=== PATIENT | male | born 1960 | race Caucasian/White ===

== ENCOUNTER → 2017-10-18 | Outpatient (CLI) | payer OTHER ==
[~2017-10-18] MED LIST: CITA20; GLIM4; JARDIANCE25 MG PO; LOVA40; METF500C PO; ROPI.25
== END | disposition home or self-care (01) ==
LOC: LAB EV 11:30
DX: E11.9 Type 2 diabetes mellitus without complications (principal)
CPT/HCPCS: 82043

== ENCOUNTER 2018-07-29 08:08 | Day surgery (SDC) | payer OTHER ==
[~2018-07-29] VITALS: Ht 172.7 cm; Wt 110.0 kg
[~2018-07-29 08:08] MED LIST changes: -JARDIANCE25 MG PO
[2018-07-29] MEDS ORDERED: JARDIANCE25 MG PO (08:37)
== END 2018-07-29 09:54 | disposition home or self-care (01) ==
LOC: ORSCSDS 08:08
PROVIDERS: Ophthalmology
PROC: 08RK3JZ Replacement of Left Lens with Synthetic Substitute, Percutaneous Approach (ICD-10-PCS; principal; 2018-07-29 09:30)
DX: H25.12 Age-related nuclear cataract, left eye (principal); G47.33 Obstructive sleep apnea (adult) (pediatric); E11.36 Type 2 diabetes mellitus with diabetic cataract; E66.9 Obesity, unspecified; Z68.36 Body mass index [BMI] 36.0-36.9, adult; Z79.84 Long term (current) use of oral hypoglycemic drugs; Z79.899 Other long term (current) drug therapy
CPT/HCPCS: 82947; J2001; J2250; J3010; J3301; J7120; V2632

== ENCOUNTER → 2021-03-20 | Outpatient (CLI) | payer OTHER ==
[~2021-03-20] MED LIST changes: +AMOCLA875 PO; +AMOX-CLAV 500-1 EAC5 PO; +ATOR40TA PO; +ATORVASTATIN CA40 MG PO; +CITALOPRAM HBR20 M2 PO; -GLIM4; +GLIM4 PO; +GLIMEPIRIDE4 MG PO; +JARDIANCE25 MG PO; +METFORMIN HCL1000 M7 PO; +NEURONTIN300 MG PO; +ROPINIROLE HCL1 MG PO; +TRAZ100 PO; +TRULICITY1.5 MG/0.1 SC; +Vitamin D2000 UNIT PO
== END | disposition home or self-care (01) ==
LOC: LAB 18:16 → LAB SHORT 18:16
DX: E11.622 Type 2 diabetes mellitus with other skin ulcer (principal)
CPT/HCPCS: 87070; 87075; 87077; 87147; 87186; 87205

== ENCOUNTER 2021-04-18 15:07 | Inpatient (IN) | payer OTHER ==
[~2021-04-18] VITALS: Ht 172.7 cm; Wt 107.5 kg
[~2021-04-18 15:07] MED LIST changes: -AMOCLA875 PO; -AMOX-CLAV 500-1 EAC5 PO; -ATOR40TA PO; -ATORVASTATIN CA40 MG PO; -CITALOPRAM HBR20 M2 PO; -GLIMEPIRIDE4 MG PO; -METFORMIN HCL1000 M7 PO; -NEURONTIN300 MG PO; -ROPINIROLE HCL1 MG PO; -TRAZ100 PO; -TRULICITY1.5 MG/0.1 SC; -Vitamin D2000 UNIT PO
[2021-04-18 16:17] LABS: BASOPHILS ABSOLUTE AUTO 0.05 K/mm3 (0.00-0.23); BASOPHILS PERCENT AUTO 0 % (0-2); EOSINOPHILS ABSOLUTE AUTO 0.21 K/mm3 (0.00-0.68); EOSINOPHILS PERCENT AUTO 2 % (0-6); Hematocrit 42.3 % (37.0-53.0); Hemoglobin 14.4 g/dL (13.5-17.5); IMMATURE GRAN ABSOLUTE AUTO 0.14 K/mm3 (0.00-0.10); IMMATURE GRAN PERCENT AUTO 1 % (0-1); LYMPHOCYTES ABSOLUTE AUTO 1.34 K/mm3 (0.84-5.20); LYMPHOCYTES PERCENT AUTO 10 % (21-46); MONOCYTES ABSOLUTE AUTO 0.76 K/mm3 (0.16-1.47); MONOCYTES PERCENT AUTO 6 % (4-13); Mean Corpuscular HGB 30.4 pg (26.0-34.0); Mean Corpuscular Volume 89 fL (80-100); Mean Platelet Volume 8.4 fL (9.1-12.4); NEUTROPHILS PERCENT AUTO 81 % (41-73); Platelet Count 324 K/mm3 (150-400); RDW Coefficient Variation 12.2 % (11.7-14.2); RDW Standard Deviation 40.5 fL (35.1-46.3); Red Blood Cell Count 4.73 M/mm3 (4.30-5.90)
[2021-04-18 16:29] LABS: Alanine Aminotransfer (ALT/SGP 30 U/L (12-78); Albumin, Blood 2.4 g/dL (3.4-5.0); Albumin/Globulin Ratio 0.4 (0.8-1.8); Alk Phos 79 U/L (50-136); Anion Gap 6 mmol/L (6-16); Aspartate Aminotrans (AST/SGOT 26 U/L (12-37); Bilirubin, Total 0.2 mg/dL (0.1-1.0); Blood Urea Nitrogen 21 mg/dL (8-24); Bun/Creatinine Ratio 22.3 (12.0-20.0); CO2, Blood 25 mmol/L (21-32); Calcium, Blood 9.5 mg/dL (8.5-10.1); Chloride, Blood 103 mmol/L (98-108); Creatinine, Blood 0.94 mg/dL (0.60-1.20); Globulin, Blood 5.4 g/dL (2.2-4.0); Glomerular Filtration Rate >60 (60-); Glucose, Blood 171 mg/dL (70-99); Potassium, Blood 4.2 mmol/L (3.5-5.5); Sodium, Blood 134 mmol/L (136-145); Total Protein, Blood 7.8 g/dL (6.4-8.2)
[2021-04-18] MEDS ORDERED: ATORVASTATIN CA40 MG PO (16:57)
[2021-04-18] MEDS ORDERED: TRULICITY1.5 MG/0.1 SC ×2 (16:58)
[2021-04-18] MEDS ORDERED: AMOX-CLAV 500-1 EAC5 PO (16:58)
[2021-04-18] MEDS ORDERED: NEURONTIN300 MG PO ×3 (16:59→17:54)
[2021-04-18] MEDS ORDERED: TRAZ100 PO ×2 (17:00)
[2021-04-18] MEDS ORDERED: Vitamin D2000 UNIT PO ×2 (17:01)
[2021-04-18] MEDS ORDERED: GLIMEPIRIDE4 MG PO ×2 (17:51)
[2021-04-18] MEDS ORDERED: CITALOPRAM HBR20 M2 PO ×2 (17:52)
[2021-04-18] MEDS ORDERED: ROPINIROLE HCL1 MG PO ×2 (17:54)
[2021-04-18] MEDS ORDERED: METFORMIN HCL1000 M7 PO ×2 (17:54)
[2021-04-18] MEDS ORDERED: ATOR40TA PO ×2 (17:55)
--- NOTE | 2021-04-19 00:29 | NUR ---
PT NEW ADMIT, ARRIVED TO UNIT AT 2111. A/O X4, STANDBY ASSIST. INTRODUCED TO STAFF AND ROOM. PT DENIES, NAUSEA, SOB. ROOM AIR, MAINTAINING GOOD SATS. DIABETIC ULCERS ON L FOOT. CLEANSED AND DRESSED BY THIS RN. PHOTO CONSENT RECIEVED AND PHOTO DOCUMENTED. PT STATES HE HAS NEUROPATHY IN BLE AND HANDS. DENIES HX OF FALLS. PT STATES HE HAS SOME THROBBING IN L FOOT WHILE LIFTING FOOT UP. VSS, CALL LIGHT WITHIN REACH. WILL CONTINUE TO MONITOR.
[2021-04-19 05:29] LABS: BASOPHILS ABSOLUTE AUTO 0.04 K/mm3 (0.00-0.23); BASOPHILS PERCENT AUTO 0 % (0-2); EOSINOPHILS ABSOLUTE AUTO 0.32 K/mm3 (0.00-0.68); EOSINOPHILS PERCENT AUTO 3 % (0-6); Hematocrit 36.8 % (37.0-53.0); Hemoglobin 12.1 g/dL (13.5-17.5); IMMATURE GRAN PERCENT AUTO 2 % (0-1); LYMPHOCYTES ABSOLUTE AUTO 1.59 K/mm3 (0.84-5.20); LYMPHOCYTES PERCENT AUTO 17 % (21-46); MONOCYTES ABSOLUTE AUTO 0.67 K/mm3 (0.16-1.47); MONOCYTES PERCENT AUTO 7 % (4-13); Mean Corpuscular HGB 30.1 pg (26.0-34.0); Mean Corpuscular HGB Conc 32.9 g/dL (31.5-36.5); Mean Corpuscular Volume 92 fL (80-100); Mean Platelet Volume 8.2 fL (9.1-12.4); NEUTROPHILS ABSOLUTE AUTO 6.76 K/mm3 (1.96-9.15); NEUTROPHILS PERCENT AUTO 71 % (41-73); Platelet Count 299 K/mm3 (150-400); RDW Coefficient Variation 12.3 % (11.7-14.2); RDW Standard Deviation 41.4 fL (35.1-46.3); Red Blood Cell Count 4.02 M/mm3 (4.30-5.90); White Blood Cell Count 9.58 K/mm3 (4.00-11.30)
[2021-04-19 05:46] LABS: Anion Gap 5 mmol/L (6-16); Blood Urea Nitrogen 16 mg/dL (8-24); Bun/Creatinine Ratio 18.3 (12.0-20.0); CO2, Blood 28 mmol/L (21-32); Chloride, Blood 104 mmol/L (98-108); Creatinine, Blood 0.87 mg/dL (0.60-1.20); Glomerular Filtration Rate >60 (60-); Glucose, Blood 73 mg/dL (70-99); Potassium, Blood 3.9 mmol/L (3.5-5.5); Sodium, Blood 137 mmol/L (136-145)
--- NOTE | 2021-04-19 05:55 | NUR ---
MERCHANDISE PICKUP/RECEIVING ASSOCIATE SUMMARY PT A/O X4. AMBULATED WITH SBA. DENIES PAIN, NAUSEA, SOB. SLEPT ON AND OFF TONIGHT. ABLE TO MAKE NEEDS KNOWN. VSS, CALL LIGHT WITHIN REACH. SR IN THE 80'S PER SENIOR SHAREPOINT ARCHITECT. WILL CONTINUE TO MONITOR.
[2021-04-19 13:32] LABS: SARS-Cov-2 (COVID-19) PCR, MMC NEGATIVE (NEGATIVE)
--- NOTE | 2021-04-19 14:48 | NUR ---
THE PATIENT WAS BROUGHT DOWN TO DAY SURGERY FOR HIS PROCEDURE. Lungs clear T/O to Auscultation. History, Chart, Medications and Allergies reviewed before start of procedure.Patient confirms NPO status and agrees with scheduled surgery. Pre-Op teaching done. Pt verbalizes understanding. Patient States Post-Procedure ride home has been arranged.
--- NOTE | 2021-04-19 16:19 | NUR ---
04/19/21 1619 Fela Orta PT ON SCHEDULED ABX.
[2021-04-19 18:45] LABS: Vancomycin, Trough 22.8 ug/mL (5.0-10.0)
--- NOTE | 2021-04-19 19:42 | NUR ---
A+O, RECOVERING FROM DEBRIEDMENT OF L FOOT, DRESSING CDI, 2l VIA NC, DENIES PAIN AT THIS TIME, FOOT ELEVATED, ABX INFUSING, BSR SHARED WITH NOC NURSE AND PT
--- NOTE | 2021-04-20 04:41 | NUR ---
SHIFT SUMMARY ADMITTED FOR LEFT FOOT DIABETIC ULCER. FULL CODE. LEFT FOOT ULCER DEBRIDED YESTERDAY. PLAN IS FOR POSSIBLE WOUND VAC ATTACHMENT TODAY. LR INFUSING @ 50 ML/HR. WE DID TITRATE O2 DOWN, HE IS NOW ON RA. O2 SAT IS 94% ON RA. WE DID PROVIDE A BSC IN CASE PT COULD NOT URINATE PROPERLY - PROBLEM REPORTED FROM DAY RN. PT INFORMED ME THAT HE WAS FINALLY SUCCESSFUL IN USING THE URINAL. TELEMETRY - NSR @ 85 BPM. CONTACT PRECAUTIONS FOR MRSA IN WOUND.
[2021-04-20 05:49] LABS: Vancomycin, Random 11.9 ug/mL
[2021-04-20 10:53] LABS: Percent Saturation 33.5 % (20.0-50.0)
--- NOTE | 2021-04-20 17:56 | NUR ---
SPOKE TO DR MORENO THIS AFTERNOON REGARDING WOUND VAC PLACEMENT AND CARE MANAGEMENT NEEDING WOUND SIZE DOCUMENTATION FROM THE [employer] AND NEED FOR WOUND VAC IN A PROGRESS NOTE FOR INSURANCE APPROVAL FOR HOME WOUND VAC. PER DR MORENO HE WILL BE IN THIS EVEING TO TALK WITH THE PATIENT. WOUND VAC AWAITING PLACEMENT FOR MEASUREMENTS FROM DR. JUAN MASON IN ROOM AND THIS TIME.
--- NOTE | 2021-04-20 19:24 | NUR ---
SHIFT SUMMARY PT A&OX4, ABLE TO MAKE NEEDS KNOWN. PLEASANT AND COOPERATIVE TO CARE. MEDICATED FOR PAIN PER EMAR. NO C/O CP, SOB, OR N&V. PT ON IV ABX, NO ASE NOTED. PT SEEN BY DR. MORENO THIS SHIFT FOR REASSESSMENT OF WOUND TO L FOOT. PT's AT BEDSIDE THIS AFTERNOON. REPORT GIVEN TO CYTOTECHNOLOGIST SUPERVISOR NURSE. BED AT LOWEST POSITION. CALL LIGHT WITHIN REACH.
[2021-04-21 05:37] LABS: BASOPHILS ABSOLUTE AUTO 0.04 K/mm3 (0.00-0.23); BASOPHILS PERCENT AUTO 0 % (0-2); EOSINOPHILS ABSOLUTE AUTO 0.12 K/mm3 (0.00-0.68); EOSINOPHILS PERCENT AUTO 1 % (0-6); Hemoglobin 11.9 g/dL (13.5-17.5); IMMATURE GRAN ABSOLUTE AUTO 0.18 K/mm3 (0.00-0.10); IMMATURE GRAN PERCENT AUTO 2 % (0-1); LYMPHOCYTES ABSOLUTE AUTO 1.89 K/mm3 (0.84-5.20); LYMPHOCYTES PERCENT AUTO 20 % (21-46); MONOCYTES ABSOLUTE AUTO 0.52 K/mm3 (0.16-1.47); MONOCYTES PERCENT AUTO 5 % (4-13); Mean Corpuscular HGB 29.8 pg (26.0-34.0); Mean Corpuscular HGB Conc 33.1 g/dL (31.5-36.5); Mean Corpuscular Volume 90 fL (80-100); Mean Platelet Volume 7.9 fL (9.1-12.4); NEUTROPHILS ABSOLUTE AUTO 6.93 K/mm3 (1.96-9.15); NEUTROPHILS PERCENT AUTO 72 % (41-73); Platelet Count 322 K/mm3 (150-400); RDW Standard Deviation 39.8 fL (35.1-46.3); White Blood Cell Count 9.68 K/mm3 (4.00-11.30)
--- NOTE | 2021-04-21 05:47 | NUR ---
SHIFT SUMMARY: VSS. AFEB. AAOX4. ABLE TO COMMUNICATE NEEDS. MAINTENANCE IV FLUIDS CONTINUOUSLY PER ORDERS. IV ABT INFUSED. TO TOUCH WT BEARING ONLY TO LLE. WOUND VAC IN PLACE TO LLE AND SUCTIONING AT 125MMHG. NO DRAINAGE OBSERVED IN COLLECTION CHAMBER. PEDAL PULSES PALPABLE BILATERALLY. +1 PITTING EDEMA OF LLE, ELEVATED ON PILLOW. MED W/TYL FOR PAIN EFFECTIVELY. NO ACUTE OVERNIGHT EVENTS. WCTM.
[2021-04-21 06:03] LABS: Anion Gap 5 mmol/L (6-16); Blood Urea Nitrogen 20 mg/dL (8-24); Bun/Creatinine Ratio 25.3 (12.0-20.0); CO2, Blood 29 mmol/L (21-32); Calcium, Blood 8.4 mg/dL (8.5-10.1); Chloride, Blood 103 mmol/L (98-108); Creatinine, Blood 0.79 mg/dL (0.60-1.20); Glomerular Filtration Rate >60 (60-); Glucose, Blood 178 mg/dL (70-99); Potassium, Blood 4.1 mmol/L (3.5-5.5); Sodium, Blood 137 mmol/L (136-145)
--- NOTE | 2021-04-21 17:14 | NUR ---
SHIFT SUMMARY PATIENT ALERT AND ORIENTED THIS SHIFT. PATIENT IS A MINIMAL ASSIST DUE TO WOUND VAC ON L FOOT. PATIENT REMAINED IN BED THROUGHOUT THIS AM, THEN UP TO CHAIR THIS AFTERNOON. PATIENT MEDICATED FOR PAIN 1X THIS AFTERNOON, PER EMAR. PATIENT'S SPOUSE IN THE ROOM THIS AFTERNOON VISITING. PATIENT CURRENTLY SITTING UP IN CHAIR WATCHING TELEVISION.
--- NOTE | 2021-04-22 04:55 | NUR ---
SHIFT SUMMARY: VSS. AFEB. AAOX4. COMMUNICATES NEEDS. UP TO BSC W/ 1 ASSIST. HEEL TOUCH WT BEARING ONLY ON L FOOT. WOUND VAC IN PLACE AND CONTINUOUSLY SUCTIONING AT 120MMHG. PAIN MANAGED W/ TYLENOL. LLE ELEVATED ON PILLOW WHILE IN BED. +1 SWELLING AND MILD PERIWOUND ERYTHEMA VISIBLE. NO ACUTE OVERNIGHT EVENTS. WCTM.
--- NOTE | 2021-04-22 06:37 | NUR ---
REPORT GIVEN TO RUFUS ZHONG. PT T/F TO [facility] FLOOR ROOM 309. PT STATES HE WILL NOTIFY HIS OF THE ROOM CHANGE.
--- NOTE | 2021-04-22 18:42 | NUR ---
SHIFT SUMMARY EVA GOT TYLENOL FOR PAIN. SAT AT EDGE OF BED, MAINTAINED NWB ON LLE. VISITED. TOOK MEDS PRESCRIBED, CALL LIGHT IN REACH, WCTM
--- NOTE | 2021-04-23 04:31 | NUR ---
SHIFT SUMMARY NO ACUTE CHANGES THIS SHIFT, NO C/O ANY KIND, SLEPT T/O THE NIGHT & SLEEPING AT THIS TIME, CALL LIGHT IN REACH, WILL CONT TO MONITOR UNTIL REPORT GIVEN TO DAY RN.
--- NOTE | 2021-04-23 14:38 | NUR ---
UPDATED ON WOUND VAC STATIS. WOUND VAC COMING FROM [place]. PATIENT ALERT.ORIENTED. HAS DENIED ANY NEED FOR PAIN MEDS. WOUND VAC WITH SUCTION. UNLABORED RESPIRATIONS. NO ACUTE CHANGES . WCTM.
[2021-04-23] MEDS ORDERED: AMOCLA875 PO ×2 (16:07)
--- NOTE | 2021-04-23 18:45 | NUR ---
REVIEW D'C WITH PT AND S.O. WOUND VAC CHANGED AND HOME VAC USED. AWARE HAS 2 APPOINTMENTS. ONE MED AT [facility] AID AND REVIEW HOW AND WHEN TO TAKE. ANSWER ALL QUESTIONS. WOUND VAC WITH GOOD SUCTION. VERBALIZE UNDERSTANDING. IN W/C TO POV
== END 2021-04-23 18:45 | disposition home or self-care (01) | DRG 854 ==
LOC: ER 15:07 → MEDS 17:33
PROVIDERS: Internal Medicine; Physician Assistant; Podiatrist; ADMIT Family Medicine
PROC: 0LBW0ZZ Excision of Left Foot Tendon, Open Approach (ICD-10-PCS; principal; 2021-04-19 15:30)
DX: A40.8 Other streptococcal sepsis (principal); L97.528 Non-pressure chronic ulcer of other part of left foot with other specified severity; L03.116 Cellulitis of left lower limb; E87.1 Hypo-osmolality and hyponatremia; R65.20 Severe sepsis without septic shock; E11.621 Type 2 diabetes mellitus with foot ulcer; E11.628 Type 2 diabetes mellitus with other skin complications; L97.529 Non-pressure chronic ulcer of other part of left foot with unspecified severity; E11.42 Type 2 diabetes mellitus with diabetic polyneuropathy; F32.9 Major depressive disorder, single episode, unspecified; E78.5 Hyperlipidemia, unspecified; D50.9 Iron deficiency anemia, unspecified
CPT/HCPCS: 36415; 73630; 80048; 80053; 80202; 82728; 82947; 83540; 83550; 83605; 85025; 85651; 87040; 87070; 87075; 87076; 87077; 87185; 87186; 87205; 93005; 93010; 94760; 96365; 96375; 99285-25; A9270; J0690; J1100; J1815; J2250; J2405; J2543; J2704; J3010; J3370; J7050; J7120; U0004

== ENCOUNTER → 2021-05-07 | Outpatient (CLI) | payer OTHER ==
[~2021-05-07] MED LIST changes: +AMOCLA875 PO; +AMOX-CLAV 500-1 EAC5 PO; +ATOR40TA PO; +ATORVASTATIN CA40 MG PO; +CITALOPRAM HBR20 M2 PO; +GLIMEPIRIDE4 MG PO; +METFORMIN HCL1000 M7 PO; +NEURONTIN300 MG PO; +ROPINIROLE HCL1 MG PO; +TRAZ100 PO; +TRULICITY1.5 MG/0.1 SC; +Vitamin D2000 UNIT PO
[2021-05-07 17:08] LABS: BASOPHILS ABSOLUTE AUTO 0.04 K/mm3 (0.00-0.23); BASOPHILS PERCENT AUTO 1 % (0-2); EOSINOPHILS ABSOLUTE AUTO 0.64 K/mm3 (0.00-0.68); EOSINOPHILS PERCENT AUTO 9 % (0-6); Hematocrit 41.4 % (37.0-53.0); Hemoglobin 13.4 g/dL (13.5-17.5); IMMATURE GRAN ABSOLUTE AUTO 0.02 K/mm3 (0.00-0.10); IMMATURE GRAN PERCENT AUTO 0 % (0-1); LYMPHOCYTES ABSOLUTE AUTO 1.55 K/mm3 (0.84-5.20); LYMPHOCYTES PERCENT AUTO 22 % (21-46); MONOCYTES ABSOLUTE AUTO 0.44 K/mm3 (0.16-1.47); MONOCYTES PERCENT AUTO 6 % (4-13); Mean Corpuscular HGB 30.3 pg (26.0-34.0); Mean Corpuscular HGB Conc 32.4 g/dL (31.5-36.5); Mean Corpuscular Volume 94 fL (80-100); Mean Platelet Volume 8.5 fL (9.1-12.4); NEUTROPHILS PERCENT AUTO 62 % (41-73); Platelet Count 196 K/mm3 (150-400); RDW Coefficient Variation 13.2 % (11.7-14.2); RDW Standard Deviation 45.1 fL (35.1-46.3); Red Blood Cell Count 4.42 M/mm3 (4.30-5.90); White Blood Cell Count 7.09 K/mm3 (4.00-11.30)
== END | disposition home or self-care (01) ==
LOC: LAB 15:48 → LAB HH 15:48
PROVIDERS: Internal Medicine
DX: E13.621 Other specified diabetes mellitus with foot ulcer (principal); L97.509 Non-pressure chronic ulcer of other part of unspecified foot with unspecified severity
CPT/HCPCS: 85025; 85651; 86140

== ENCOUNTER → 2021-08-31 | Outpatient (CLI) | payer OTHER | END | disposition home or self-care (01) | LOC: LAB 16:00 → LAB HH 16:00 | DX: E11.621 Type 2 diabetes mellitus with foot ulcer (principal); L97.509 Non-pressure chronic ulcer of other part of unspecified foot with unspecified severity | CPT/HCPCS: 87070; 87075; 87077; 87147; 87186; 87205 ==

== ENCOUNTER → 2021-10-29 | Outpatient (CLI) | payer OTHER | END | disposition home or self-care (01) | LOC: LAB 11:50 → LAB SHORT 11:50 | DX: E11.40 Type 2 diabetes mellitus with diabetic neuropathy, unspecified (principal); L03.116 Cellulitis of left lower limb; E11.621 Type 2 diabetes mellitus with foot ulcer; L97.523 Non-pressure chronic ulcer of other part of left foot with necrosis of muscle; L97.423 Non-pressure chronic ulcer of left heel and midfoot with necrosis of muscle; Z86.14 Personal history of Methicillin resistant Staphylococcus aureus infection | CPT/HCPCS: 87070; 87075; 87147; 87205 ==

== ENCOUNTER 2021-12-28 11:27 | Day surgery (SDC) | payer OTHER ==
[~2021-12-28] VITALS: Ht 172.7 cm; Wt 108.6 kg
[2021-12-28] MEDS ORDERED: Amaryl2 MG PO (12:04)
--- NOTE | 2021-12-28 13:28 | NUR ---
12/28/21 1328 Dane Osorio 0.15ML OF EPI 1MG/ML ADDED TO 30ML BOTTLE OF BUPIVICAINE 0.5% TO CREATE A SOLUTION OF BUPIVICAINE 0.5% WITH EPI 1:200,000.
== END 2021-12-28 14:20 | disposition home or self-care (01) ==
LOC: ORSCSDS 11:27
PROVIDERS: Podiatrist Foot & Ankle Surgery
PROC: 0Y6P0Z0 Detachment at Right 1st Toe, Complete, Open Approach (ICD-10-PCS; principal; 2021-12-28 12:45)
DX: E11.621 Type 2 diabetes mellitus with foot ulcer (principal); M86.171 Other acute osteomyelitis, right ankle and foot; L03.031 Cellulitis of right toe; Z79.84 Long term (current) use of oral hypoglycemic drugs; Z79.899 Other long term (current) drug therapy
CPT/HCPCS: 82947; 87070; 87075; 87205; 88305; 88311; J0171; J0690; J2250; J2704; J3010; J7799

== ENCOUNTER 2022-09-16 20:27 | Inpatient (IN) | payer OTHER ==
[~2022-09-16] VITALS: Ht 172.7 cm; Wt 108.1 kg
[~2022-09-16 20:27] MED LIST changes: +Amaryl2 MG PO; +CELEXA40 M1 PO; -CITALOPRAM HBR20 M2 PO
[2022-09-16 21:06] LABS: BASOPHILS ABSOLUTE AUTO 0.04 K/mm3 (0.00-0.23); BASOPHILS PERCENT AUTO 0 % (0-2); EOSINOPHILS ABSOLUTE AUTO 0.03 K/mm3 (0.00-0.68); EOSINOPHILS PERCENT AUTO 0 % (0-6); Hematocrit 44.7 % (37.0-53.0); Hemoglobin 15.2 g/dL (13.5-17.5); IMMATURE GRAN ABSOLUTE AUTO 0.05 K/mm3 (0.00-0.10); IMMATURE GRAN PERCENT AUTO 0 % (0-1); LYMPHOCYTES ABSOLUTE AUTO 0.95 K/mm3 (0.84-5.20); LYMPHOCYTES PERCENT AUTO 8 % (21-46); MONOCYTES ABSOLUTE AUTO 0.58 K/mm3 (0.16-1.47); MONOCYTES PERCENT AUTO 5 % (4-13); Mean Corpuscular HGB 29.8 pg (26.0-34.0); Mean Corpuscular Volume 88 fL (80-100); NEUTROPHILS ABSOLUTE AUTO 10.86 K/mm3 (1.96-9.15); NEUTROPHILS PERCENT AUTO 87 % (41-73); Platelet Count 238 K/mm3 (150-400); RDW Coefficient Variation 11.9 % (11.7-14.2); RDW Standard Deviation 38.3 fL (35.1-46.3); White Blood Cell Count 12.51 K/mm3 (4.00-11.30)
[2022-09-16 21:33] LABS: Albumin, Blood 3.4 g/dL (3.4-5.0); Albumin/Globulin Ratio 0.7 (0.8-1.8); Bilirubin, Total 1.2 mg/dL (0.1-1.0); Bun/Creatinine Ratio 14.4 (12.0-20.0); Calcium, Blood 9.2 mg/dL (8.5-10.1); Creatinine, Blood 0.97 mg/dL (0.60-1.20); Globulin, Blood 4.6 g/dL (2.2-4.0); Potassium, Blood 4.6 mmol/L (3.5-5.5)
--- NOTE | 2022-09-17 06:44 | NUR ---
SHIFT SUMMARY: PATIENT ARRIVED TO PCU AT O154. ORIENTED TO ROOM. NO COMPLAINTS AT THIS TIME. STARTED ON NS @ 100/HR. RIGHT MIDDLE FINGER VERY SWOLLEN.
[2022-09-17 08:05] LABS: BASOPHILS ABSOLUTE AUTO 0.02 K/mm3 (0.00-0.23); BASOPHILS PERCENT AUTO 0 % (0-2); EOSINOPHILS ABSOLUTE AUTO 0.07 K/mm3 (0.00-0.68); EOSINOPHILS PERCENT AUTO 1 % (0-6); Hematocrit 40.3 % (37.0-53.0); Hemoglobin 14.1 g/dL (13.5-17.5); IMMATURE GRAN ABSOLUTE AUTO 0.07 K/mm3 (0.00-0.10); IMMATURE GRAN PERCENT AUTO 1 % (0-1); LYMPHOCYTES ABSOLUTE AUTO 1.33 K/mm3 (0.84-5.20); LYMPHOCYTES PERCENT AUTO 12 % (21-46); MONOCYTES ABSOLUTE AUTO 0.92 K/mm3 (0.16-1.47); MONOCYTES PERCENT AUTO 8 % (4-13); Mean Corpuscular HGB 30.6 pg (26.0-34.0); Mean Corpuscular Volume 87 fL (80-100); Mean Platelet Volume 7.8 fL (9.1-12.4); NEUTROPHILS ABSOLUTE AUTO 8.71 K/mm3 (1.96-9.15); NEUTROPHILS PERCENT AUTO 78 % (41-73); Platelet Count 198 K/mm3 (150-400); RDW Standard Deviation 38.9 fL (35.1-46.3); Red Blood Cell Count 4.61 M/mm3 (4.30-5.90); White Blood Cell Count 11.12 K/mm3 (4.00-11.30)
[2022-09-17 08:23] LABS: Bun/Creatinine Ratio 14.6 (12.0-20.0); Calcium, Blood 8.9 mg/dL (8.5-10.1); Creatinine, Blood 0.89 mg/dL (0.60-1.20); Potassium, Blood 4.1 mmol/L (3.5-5.5)
--- NOTE | 2022-09-17 18:04 | NUR ---
Shift Summary Pt was resting quietly in room and stated no c/o pain or discomfort. Pt was transported to surgical suite by bed at approximately 1200. Pt was returned to room at approximately 1500. Pt continued to rest in bed. Pt stated that their brething had improved greatly since recovery. Vital signs continued to measure within trends for pt.
--- NOTE | 2022-09-17 19:46 | NUR ---
Assumed care of patient at 1900. Pt resting in bed, at bedside. On RA, A&O. Pt requesting Kowalski catheter be removed. Pt denies other needs ATT. Vitals signs stable, will continue to monitor.
[2022-09-18 04:58] LABS: BASOPHILS ABSOLUTE AUTO 0.02 K/mm3 (0.00-0.23); BASOPHILS PERCENT AUTO 0 % (0-2); EOSINOPHILS PERCENT AUTO 0 % (0-6); Hematocrit 40.2 % (37.0-53.0); Hemoglobin 13.4 g/dL (13.5-17.5); IMMATURE GRAN ABSOLUTE AUTO 0.06 K/mm3 (0.00-0.10); IMMATURE GRAN PERCENT AUTO 1 % (0-1); LYMPHOCYTES ABSOLUTE AUTO 0.75 K/mm3 (0.84-5.20); LYMPHOCYTES PERCENT AUTO 7 % (21-46); MONOCYTES ABSOLUTE AUTO 0.46 K/mm3 (0.16-1.47); MONOCYTES PERCENT AUTO 4 % (4-13); Mean Corpuscular HGB Conc 33.3 g/dL (31.5-36.5); Mean Corpuscular Volume 90 fL (80-100); Mean Platelet Volume 8.4 fL (9.1-12.4); NEUTROPHILS ABSOLUTE AUTO 9.28 K/mm3 (1.96-9.15); NEUTROPHILS PERCENT AUTO 88 % (41-73); Platelet Count 202 K/mm3 (150-400); RDW Coefficient Variation 11.9 % (11.7-14.2); RDW Standard Deviation 38.9 fL (35.1-46.3); Red Blood Cell Count 4.47 M/mm3 (4.30-5.90); White Blood Cell Count 10.57 K/mm3 (4.00-11.30)
[2022-09-18 05:10] LABS: Bun/Creatinine Ratio 23.5 (12.0-20.0); Calcium, Blood 8.5 mg/dL (8.5-10.1); Creatinine, Blood 0.89 mg/dL (0.60-1.20); Potassium, Blood 4.8 mmol/L (3.5-5.5)
--- NOTE | 2022-09-18 06:07 | NUR ---
Shift summary. Pt rested in bed througout shift. Dr. Ulloa contacted for BG level of 470 at 2100, order obtained to switch patient to high sliding scale and achs coverage. BG down to 270 this am. No other acute changes. VS stable. See shift assessment for further details. Will continue to monitor and report off to dayshift RN.
[2022-09-18 16:08] LABS: Vancomycin, Trough 14.1 ug/mL (5.0-10.0)
--- NOTE | 2022-09-18 17:37 | NUR ---
Shift Summary Pt has been resting in room, they got up to the restroom to shower with the assistance of their spouse after this RN performed set up. Pt denied c/o pain and stated mild discomfort to the right hand. Pt has been in good spirits despite expressing worry over the potential of losing part of a digit. Pt's spouse has been at bedside throughout the day. Pt denied any c/o chills, they have remained afebrile with vital signs stable.
--- NOTE | 2022-09-19 04:46 | NUR ---
SHIFT SUMMARY A&Ox4, CALLS AND COMMUNICATES NEEDS APPROPRIATELY VSS, SINUS 80's, SpO2> 92% RA. DENIES SOB, CP/PRESSURE. DRESING ON RIGHT MIDDLE FINGER C/D/I. MANAGED PAIN PER EMAR. PT IND IN ROOM. NO OTHER EVENTS THIS SHIFT, WILL REPORT TO DAY SHIFT RN.
--- NOTE | 2022-09-19 11:47 | NUR ---
Spiritual care visit attempted. Pt is lying in bed and alert. Spouse Kayla is bedside. I introduce myself and pt and Kayla quickly decline a visit. I will continue to remian available to pt and family.
--- NOTE | 2022-09-19 17:52 | NUR ---
SHIFT SUMMARY Pt has been up in room under the supervision of family members. Pt has stated that pain has been manageable (2-02/24) without medication. Pt has been offered pain management when pain is reported, pt has refused each time. Pt has expressed some sorrow regarding the upcoming amputation of their digit. Pt has been open to communication with this RN and has expressed a desire for the shortest possible path to discharge. Vital signs stable.
--- NOTE | 2022-09-20 00:22 | NUR ---
DRESSING CHANGE WHILE PROVIDING THE ORDERED DRESSING CHANGE, THIS RN WAS UNABLE TO REMOVE 100% OF THE PACKING. PACKING REMAINED IN ONE PIECE BUT WAS REQUIRING MORE PULLING FORCE THAN THIS RN WAS COMFORTABLE WITH PROVIDING TO REMOVE COMPLETELY. ANOTHER RN AND THE CHARGE NURSE HELPED ASSESS THE PT AND ASSISTED WITH THE DRESSING CHANGE, THEY WERE ALSO NOT ABLE TO REMOVE THE PACKING. TRIMMED PACKING TO LEAVE 1.5in TAIL AND PROCEEDED WITH DRESSING CHANGE ORDERED. PT DENIED PAIN DURING DRESSING CHANGE AND HAS NO COMPLAINTS OF PAIN AT THIS TIME.
[2022-09-20 03:51] LABS: BASOPHILS ABSOLUTE AUTO 0.04 K/mm3 (0.00-0.23); BASOPHILS PERCENT AUTO 0 % (0-2); EOSINOPHILS ABSOLUTE AUTO 0.26 K/mm3 (0.00-0.68); EOSINOPHILS PERCENT AUTO 3 % (0-6); Hematocrit 40.1 % (37.0-53.0); Hemoglobin 13.2 g/dL (13.5-17.5); IMMATURE GRAN ABSOLUTE AUTO 0.06 K/mm3 (0.00-0.10); IMMATURE GRAN PERCENT AUTO 1 % (0-1); LYMPHOCYTES ABSOLUTE AUTO 1.71 K/mm3 (0.84-5.20); LYMPHOCYTES PERCENT AUTO 18 % (21-46); MONOCYTES ABSOLUTE AUTO 0.62 K/mm3 (0.16-1.47); MONOCYTES PERCENT AUTO 7 % (4-13); Mean Corpuscular HGB 29.6 pg (26.0-34.0); Mean Corpuscular HGB Conc 32.9 g/dL (31.5-36.5); Mean Corpuscular Volume 90 fL (80-100); Mean Platelet Volume 8.1 fL (9.1-12.4); NEUTROPHILS ABSOLUTE AUTO 6.87 K/mm3 (1.96-9.15); NEUTROPHILS PERCENT AUTO 72 % (41-73); Platelet Count 222 K/mm3 (150-400); RDW Coefficient Variation 11.8 % (11.7-14.2); RDW Standard Deviation 38.5 fL (35.1-46.3); Red Blood Cell Count 4.46 M/mm3 (4.30-5.90); White Blood Cell Count 9.56 K/mm3 (4.00-11.30)
[2022-09-20 04:08] LABS: Vancomycin, Trough 20.4 ug/mL (5.0-10.0)
[2022-09-20 04:19] LABS: Calcium, Blood 8.9 mg/dL (8.5-10.1); Creatinine, Blood 0.85 mg/dL (0.60-1.20); Potassium, Blood 3.9 mmol/L (3.5-5.5)
--- NOTE | 2022-09-20 04:52 | NUR ---
SHIFT SUMMARY A&Ox4, CALLS AND COMMUNICATES NEEDS APPROPRIATELY. VSS, SINUS 80's, BP STABLE, SpO2> 92% RA. DENIES SOB, CP/PRESSURE. PROVIDED DRESSING CHANGE ON R MIDDLE FINGER, SEE DRESSING CHANGE NOTE. PT IND IN ROOM. PT NPO AT 0000. NO OTHER EVENTS THIS SHIFT, PT ANXIOUS FOR PROCEDURE. WILL REPORT TO DAY SHIFT RN.
--- NOTE | 2022-09-20 09:24 | NUR ---
PATIENT AND STATES SCARED REGARDING ASPIRATION LAST TIME A FEW DAYS AGO OFFERED REASSURANCE. GIVEN TISSUE AT THIS TIME..
--- NOTE | 2022-09-20 09:31 | NUR ---
PT LEFT PCU FOR PROCEDURE AT ABOUT 0915 VIA GURNEY AND OCCOMPANIED BY ONE RN.
--- NOTE | 2022-09-20 11:05 | NUR ---
09/20/22 1105 Kylie Pa NO PREOP ANTIBIOTICS ORDERED PER PATIENT IS ON SCHEDULED ANTIBIOTICS.
--- NOTE | 2022-09-20 11:20 | NUR ---
discharge update DISCHARGE PACKET GONE OVER WITH PT AND PT AT 1107. PT DISCHARGED AT 1118. PT REFUSED WHEELCHAIR AND WALKED OUT [facility] ON HIS OWN. PT STENT CARD IN DISCHARGE PACKET AND PACKET IS WITH DURING DISCHARGE. PT PERSONAL BELONGINGS IN BAGS AND WITH PT DURING DISCHARGE.
--- NOTE | 2022-09-20 11:37 | NUR ---
REPORT RECIEVED FROM IMMUNOPATHOLOGIST AT 1132.
--- NOTE | 2022-09-20 12:08 | NUR ---
PT ARRIVED FROM PROCEDURE AT 1200 VIA GURNEY. PT ON 2L NC UPON ARRIVAL, SATS IN THE 90'S
--- NOTE | 2022-09-20 13:39 | NUR ---
PT UP IN ROOM. AMBULATED TO BATHROOM AND BACK TO BED WITH MINIMAL ASSISTANCE, SBA. TOLERATED WELL. NO RPORT OF SOB/DYSPNEA.
--- NOTE | 2022-09-20 18:51 | NUR ---
SHIFT SUMMARY PT A/OX4 AND COOPERATIVE OF CARE. PT AND PT SPOUSE BOTH A LITTLE ANXIOUS ABOUT PROCEDURE AND ABX TREATMENT THAT IS NEEDED. PT VSS THROUGHOUT SHIFT WITH O2 SATS >96% ON RA. NO REPORT OF CHEST PAIN/PRESSURE THROUGHOUT SHIFT. NO REPORT OF SOB/DYSPNEA THROUGHOUT SHIFT. PT HAD RIGHT MIDDLE FINGER AMPUTATED, DRESSING IN PLACE, C/D/I. NO PAIN REPORTED AFTER PROCEDURE, STATES "THERE IS SIGNIFICANT NEUROPATHY THOUGH." PT RAN A MINOR TEMP TOWARDS END OF SHIFT, TREATED PER EMAR, RESOLVED AT THIS TIME.PT UP TO BATHROOM MULTIPLE TIMES, SBA, TOLERATED WELL. NS RUNNIG AT 8OML/HR PER ORDERS, PT INSTRUCTED TO CALL FOR BATHROOM ASSISTANCE.
[2022-09-21 00:22] LABS: Vancomycin, Trough 11.3 ug/mL (5.0-10.0)
[2022-09-21 04:24] LABS: BASOPHILS ABSOLUTE AUTO 0.02 K/mm3 (0.00-0.23); BASOPHILS PERCENT AUTO 0 % (0-2); EOSINOPHILS ABSOLUTE AUTO 0.32 K/mm3 (0.00-0.68); EOSINOPHILS PERCENT AUTO 3 % (0-6); Hematocrit 36.5 % (37.0-53.0); Hemoglobin 12.4 g/dL (13.5-17.5); IMMATURE GRAN ABSOLUTE AUTO 0.07 K/mm3 (0.00-0.10); IMMATURE GRAN PERCENT AUTO 1 % (0-1); LYMPHOCYTES ABSOLUTE AUTO 1.33 K/mm3 (0.84-5.20); LYMPHOCYTES PERCENT AUTO 13 % (21-46); MONOCYTES ABSOLUTE AUTO 0.59 K/mm3 (0.16-1.47); MONOCYTES PERCENT AUTO 6 % (4-13); Mean Corpuscular HGB 30.4 pg (26.0-34.0); Mean Corpuscular Volume 90 fL (80-100); Mean Platelet Volume 7.9 fL (9.1-12.4); NEUTROPHILS ABSOLUTE AUTO 7.62 K/mm3 (1.96-9.15); NEUTROPHILS PERCENT AUTO 77 % (41-73); Platelet Count 207 K/mm3 (150-400); RDW Coefficient Variation 11.9 % (11.7-14.2); RDW Standard Deviation 39.1 fL (35.1-46.3); Red Blood Cell Count 4.08 M/mm3 (4.30-5.90); White Blood Cell Count 9.95 K/mm3 (4.00-11.30)
--- NOTE | 2022-09-21 05:30 | NUR ---
SHIFT SUMMARY ASSUMEDCARE OF PT AT 1900. PT IS A/OX4. HEART SOUNDS REGULAR. LUNG SOUNDS CLEAR. PT R HAND IS WARM TO TOUCH, CAP REFILL TO HAND IS LESS THAN 3 SECONDS. PT STATES PAIN COMES AND GOES FROM HAND. PT IS INDEPENDENT TO BATHROOM. NO ACUTE EVENTS. SLEPT T/O THE NIGHT.
--- NOTE | 2022-09-21 17:36 | NUR ---
SHIFT SUMMARY/TRANSFER UPDATE PT A/OX4 AND COOPERATIVE OF CARE. PT EXPRESSED SOME ANXIETY OVER THE TIME FRAME OF ABX TREATMENT NEEDED WHEN PT IS TO BE DISCHARGED, LESS ANXIOUS ABOUT SITUATION TODAY. VSS THROUGHOUT SHIFT WITH O2 SATS >93% ON RA. NO REPORT OF CHEST PAIN/PRESSURE THOUGHOUT SHIFT. NO REPORT OF SOB/DYSPNEA THROUGHOUT SHIFT. PT INDEPENDENT WITHIN ROOM WITH MINIMAL ASSISTANCE FROM AND STAFF, TOLERATES WELL. REPORT FOR TRANSFER TO SUGICAL FLOOR GIVEN TO ETCHER PHOTOENGRAVING AT 1717. PT TRANSFERED TO SURGICAL ROOM AT 1734 VIA HOSPITAL BED. PT BELONGINGS, CHART, AND MEDS TRANSFERED WITH PT. PT PRESENT DURING TRANSFER.
--- NOTE | 2022-09-21 17:48 | NUR ---
ARRIVAL PT ARRIVED TO UNIT FROM PCU. POD 1 R MIDDLE FINGER AMPUTATION. PT DENIES PAIN AT THIS TIME AND REPORTS NEUROPATHY TO HANDS AND FEET AT BASELINE FOR HIM. AT BEDSIDE HELPING WITH PATIENTS NEEDS AT THIS TIME. ALL BELONGINGS SENT WITH PATIENT. ORIENTED TO UNIT. DENIES FURTHER NEEDS AT THIS TIME. CALL LIGHT IN REACH
--- NOTE | 2022-09-22 04:14 | NUR ---
SHIFT SUMMARY POD#2. AAOX4. DISCOMFORT AT TOLERABLE LEVEL T/O NIGHT. DENIES NAUSEA/EMESIS. DRESSING TO RIGHT MIDDLE FINGER SCANT AMOUNT OF DRY RED DRAINAGE, NO INCREASE THIS SHIFT. INDEPENDENT IN ROOM. GOOD PO INTAKE + OUTPUT. IVF + ABX PER ORDERS. PT RESTING WELL THIS AM, NO ACUTE CHANGES OVER NIGHT, CALL LIGHT IN REACH.
[2022-09-22 09:45] LABS: BASOPHILS ABSOLUTE AUTO 0.02 K/mm3 (0.00-0.23); BASOPHILS PERCENT AUTO 0 % (0-2); EOSINOPHILS ABSOLUTE AUTO 0.29 K/mm3 (0.00-0.68); EOSINOPHILS PERCENT AUTO 3 % (0-6); Hematocrit 40.2 % (37.0-53.0); Hemoglobin 13.3 g/dL (13.5-17.5); IMMATURE GRAN ABSOLUTE AUTO 0.06 K/mm3 (0.00-0.10); IMMATURE GRAN PERCENT AUTO 1 % (0-1); LYMPHOCYTES ABSOLUTE AUTO 1.04 K/mm3 (0.84-5.20); LYMPHOCYTES PERCENT AUTO 11 % (21-46); MONOCYTES ABSOLUTE AUTO 0.59 K/mm3 (0.16-1.47); MONOCYTES PERCENT AUTO 6 % (4-13); Mean Corpuscular HGB Conc 33.1 g/dL (31.5-36.5); Mean Corpuscular Volume 91 fL (80-100); Mean Platelet Volume 7.9 fL (9.1-12.4); NEUTROPHILS ABSOLUTE AUTO 7.58 K/mm3 (1.96-9.15); NEUTROPHILS PERCENT AUTO 79 % (41-73); Platelet Count 216 K/mm3 (150-400); RDW Coefficient Variation 11.9 % (11.7-14.2); RDW Standard Deviation 39.8 fL (35.1-46.3); Red Blood Cell Count 4.44 M/mm3 (4.30-5.90); White Blood Cell Count 9.58 K/mm3 (4.00-11.30)
[2022-09-22 10:07] LABS: Bun/Creatinine Ratio 11.9 (12.0-20.0); Calcium, Blood 8.5 mg/dL (8.5-10.1); Creatinine, Blood 0.84 mg/dL (0.60-1.20); Potassium, Blood 4.1 mmol/L (3.5-5.5)
--- NOTE | 2022-09-22 16:10 | NUR ---
SHIFT SUMMARY POD 2 R MIDDLE FINGER AMPUTATION PT HAS DENIED PAIN T/O SHIFT. HE HAS BEEN AMBULATING IN HIS ROOM, TOOK A SHOWER TODAY AND REPORTS FEELING MUCH BETTER. DRESSING REMAINS CDI. TOLERATING PO WELL. EAGER TO POSSIBLY DISCHARGE HOME TOMORROW WITH ABX.
[2022-09-23 04:52] LABS: BASOPHILS ABSOLUTE AUTO 0.03 K/mm3 (0.00-0.23); BASOPHILS PERCENT AUTO 0 % (0-2); EOSINOPHILS ABSOLUTE AUTO 0.38 K/mm3 (0.00-0.68); EOSINOPHILS PERCENT AUTO 4 % (0-6); Hematocrit 38.2 % (37.0-53.0); Hemoglobin 12.5 g/dL (13.5-17.5); IMMATURE GRAN ABSOLUTE AUTO 0.07 K/mm3 (0.00-0.10); IMMATURE GRAN PERCENT AUTO 1 % (0-1); LYMPHOCYTES ABSOLUTE AUTO 1.37 K/mm3 (0.84-5.20); LYMPHOCYTES PERCENT AUTO 16 % (21-46); MONOCYTES ABSOLUTE AUTO 0.64 K/mm3 (0.16-1.47); MONOCYTES PERCENT AUTO 7 % (4-13); Mean Corpuscular HGB 29.5 pg (26.0-34.0); Mean Corpuscular HGB Conc 32.7 g/dL (31.5-36.5); Mean Corpuscular Volume 90 fL (80-100); Mean Platelet Volume 8.3 fL (9.1-12.4); NEUTROPHILS ABSOLUTE AUTO 6.13 K/mm3 (1.96-9.15); NEUTROPHILS PERCENT AUTO 71 % (41-73); Platelet Count 253 K/mm3 (150-400); Red Blood Cell Count 4.24 M/mm3 (4.30-5.90); White Blood Cell Count 8.62 K/mm3 (4.00-11.30)
[2022-09-23 05:33] LABS: Albumin, Blood 2.3 g/dL (3.4-5.0); Albumin/Globulin Ratio 0.5 (0.8-1.8); Bilirubin, Total 0.7 mg/dL (0.1-1.0); Creatinine, Blood 0.85 mg/dL (0.60-1.20); Globulin, Blood 4.4 g/dL (2.2-4.0); Total Protein, Blood 6.7 g/dL (6.4-8.2)
--- NOTE | 2022-09-23 06:34 | NUR ---
POD 3 S/P R MIDDLE FINGER AMP. PT VSS T/O NIGHT. DRESSING CDI. PT REP PAIN MINIMAL, MED W/TYLENOL W/REP RELIEF. PT DENIED CHANGES IN SENSATION. PT INDEP IN ROOM. PLAN TO D/C HOME W/6 WEEKS IV ABX.
[2022-09-23] MEDS ORDERED: CUBICIN RF500 M1 IV (11:31)
[2022-09-23] MEDS ORDERED: ACET325 PO (11:31)
[2022-09-23] MEDS ORDERED: THERA-D2000 UNIT PO (11:31)
[2022-09-23] MEDS ORDERED: LACT PO (11:32)
--- NOTE | 2022-09-23 12:20 | NUR ---
DISCHARGE DR VICKERS BY TO CHANGE DRSG EARLIER. EATING, DRINKING, & VOIDING. IND TO TRANSFER. OORDERS, LABS, & DR NOTES FAXED TO [facility]. ATTEMPTED TO SCHEDULE APPNT FOR TOMORROW BUT DIRECTOR OF OUTREACH STATES THEY WILL CALL PT LATER TO SET UP APPNT. GIVEN # TO [facility].
== END 2022-09-23 12:33 | disposition home or self-care (01) | DRG 853 ==
LOC: ER 20:27 → PCU 09-17 01:15 → SURS 09-17 13:48 → PCU 09-17 14:46 → SURS 09-21 17:39
PROVIDERS: Family Medicine; Orthopaedic Surgery; Student in an Organized Health Care Education/Training Program; ADMIT Family Medicine
PROC: 3E03329 Introduction of Other Anti-infective into Peripheral Vein, Percutaneous Approach (ICD-10-PCS; 2022-09-17)
PROC: 0X6Q0Z1 Detachment at Right Middle Finger, High, Open Approach (ICD-10-PCS; 2022-09-20)
PROC: 02HV33Z Insertion of Infusion Device into Superior Vena Cava, Percutaneous Approach (ICD-10-PCS; 2022-09-20)
PROC: 0P9T0ZZ Drainage of Right Finger Phalanx, Open Approach (ICD-10-PCS; 2022-09-20)
PROC: 0PBT0ZX Excision of Right Finger Phalanx, Open Approach, Diagnostic (ICD-10-PCS; principal; 2022-09-20 10:00)
DX: A41.02 Sepsis due to Methicillin resistant Staphylococcus aureus (principal); I33.0 Acute and subacute infective endocarditis; M86.8X4 Other osteomyelitis, hand; I47.20 Ventricular tachycardia, unspecified; E11.69 Type 2 diabetes mellitus with other specified complication; E78.00 Pure hypercholesterolemia, unspecified; E11.42 Type 2 diabetes mellitus with diabetic polyneuropathy; G47.00 Insomnia, unspecified; F32.A Depression, unspecified; L03.011 Cellulitis of right finger; R06.89 Other abnormalities of breathing; G25.81 Restless legs syndrome; Z88.2 Allergy status to sulfonamides; Z79.899 Other long term (current) drug therapy; Z79.84 Long term (current) use of oral hypoglycemic drugs; Z79.02 Long term (current) use of antithrombotics/antiplatelets; Z98.890 Other specified postprocedural states; Z89.432 Acquired absence of left foot; Z89.431 Acquired absence of right foot
CPT/HCPCS: 36415; 36569; 71045; 71046; 73130; 73201; 80048; 80053; 80202; 82947; 83605; 85025; 85651; 86140; 87040; 87070; 87071; 87075; 87077; 87147; 87186; 87205; 88305; 88311; 90686; 93005; 93010; 93306; 96365-59; 96367-59; 99285-25; A9270; C1751; J0878; J1100; J1650; J1815; J1885; J2001; J2250; J2405; J2543; J2704; J2795; J3010; J3370; J7030; J7050; J7120; Q9967

== ENCOUNTER 2022-09-24 03:50 | Day surgery (SDC) | payer OTHER ==
[~2022-09-24 03:50] MED LIST changes: +ACET325 PO; +CUBICIN RF500 M1 IV; +LACT PO; +THERA-D2000 UNIT PO
== END 2022-09-24 08:50 | disposition home or self-care (01) ==
LOC: ATC 03:50
DX: I33.0 Acute and subacute infective endocarditis (principal); E11.42 Type 2 diabetes mellitus with diabetic polyneuropathy; E78.5 Hyperlipidemia, unspecified; M81.0 Age-related osteoporosis without current pathological fracture; Z79.84 Long term (current) use of oral hypoglycemic drugs; Z79.85 Long-term (current) use of injectable non-insulin antidiabetic drugs; Z89.411 Acquired absence of right great toe; Z88.2 Allergy status to sulfonamides; Z89.429 Acquired absence of other toe(s), unspecified side
CPT/HCPCS: 96365; J0878

== ENCOUNTER 2022-09-25 02:42 | Day surgery (SDC) | payer OTHER | END 2022-09-25 09:28 | disposition home or self-care (01) | LOC: ATC 02:42 | DX: I33.0 Acute and subacute infective endocarditis (principal); E11.42 Type 2 diabetes mellitus with diabetic polyneuropathy; E78.5 Hyperlipidemia, unspecified; Z79.4 Long term (current) use of insulin; Z88.2 Allergy status to sulfonamides; Z89.411 Acquired absence of right great toe | CPT/HCPCS: 96365; J0878 ==

== ENCOUNTER 2022-09-26 02:07 | Day surgery (SDC) | payer OTHER | END 2022-09-26 09:04 | disposition home or self-care (01) | LOC: ATC 02:07 | DX: I33.0 Acute and subacute infective endocarditis (principal); E11.621 Type 2 diabetes mellitus with foot ulcer; L97.509 Non-pressure chronic ulcer of other part of unspecified foot with unspecified severity; Z79.4 Long term (current) use of insulin; E11.42 Type 2 diabetes mellitus with diabetic polyneuropathy; Z88.2 Allergy status to sulfonamides | CPT/HCPCS: 96365; J0878 ==

== ENCOUNTER 2022-09-29 02:14 | Day surgery (SDC) | payer OTHER | END 2022-09-29 09:24 | disposition home or self-care (01) | LOC: ATC 02:14 | DX: I33.0 Acute and subacute infective endocarditis (principal); E11.42 Type 2 diabetes mellitus with diabetic polyneuropathy; E78.5 Hyperlipidemia, unspecified; M81.0 Age-related osteoporosis without current pathological fracture; Z89.411 Acquired absence of right great toe; Z88.2 Allergy status to sulfonamides; Z79.85 Long-term (current) use of injectable non-insulin antidiabetic drugs | CPT/HCPCS: 96365; J0878 ==

== ENCOUNTER 2022-09-30 02:03 | Day surgery (SDC) | payer OTHER | END 2022-09-30 09:04 | disposition home or self-care (01) | LOC: ATC 02:03 | DX: I33.0 Acute and subacute infective endocarditis (principal); E11.9 Type 2 diabetes mellitus without complications; Z79.4 Long term (current) use of insulin; E11.42 Type 2 diabetes mellitus with diabetic polyneuropathy; E11.621 Type 2 diabetes mellitus with foot ulcer; L97.519 Non-pressure chronic ulcer of other part of right foot with unspecified severity; Z79.84 Long term (current) use of oral hypoglycemic drugs; Z88.2 Allergy status to sulfonamides; E78.5 Hyperlipidemia, unspecified | CPT/HCPCS: 96365; J0878 ==

== ENCOUNTER 2022-10-01 08:27 | Day surgery (SDC) | payer OTHER | END 2022-10-01 09:17 | disposition home or self-care (01) | LOC: ATC 08:27 | DX: I33.0 Acute and subacute infective endocarditis (principal); E11.621 Type 2 diabetes mellitus with foot ulcer; E11.42 Type 2 diabetes mellitus with diabetic polyneuropathy; L97.519 Non-pressure chronic ulcer of other part of right foot with unspecified severity; Z79.84 Long term (current) use of oral hypoglycemic drugs; Z79.4 Long term (current) use of insulin | CPT/HCPCS: 82550; 96365; J0878 ==

== ENCOUNTER 2022-10-02 00:34 | Day surgery (SDC) | payer OTHER | END 2022-10-02 09:09 | disposition home or self-care (01) | LOC: ATC 00:34 | DX: I33.0 Acute and subacute infective endocarditis (principal); E11.42 Type 2 diabetes mellitus with diabetic polyneuropathy; E78.5 Hyperlipidemia, unspecified; M81.0 Age-related osteoporosis without current pathological fracture; Z79.85 Long-term (current) use of injectable non-insulin antidiabetic drugs; Z79.84 Long term (current) use of oral hypoglycemic drugs; Z88.2 Allergy status to sulfonamides | CPT/HCPCS: 96365; J0878 ==

== ENCOUNTER 2022-10-03 00:46 | Day surgery (SDC) | payer OTHER | END 2022-10-03 09:27 | disposition home or self-care (01) | LOC: ATC 00:46 | DX: I33.0 Acute and subacute infective endocarditis (principal); E11.621 Type 2 diabetes mellitus with foot ulcer; E11.42 Type 2 diabetes mellitus with diabetic polyneuropathy; L97.519 Non-pressure chronic ulcer of other part of right foot with unspecified severity; Z79.84 Long term (current) use of oral hypoglycemic drugs; Z79.4 Long term (current) use of insulin; Z88.2 Allergy status to sulfonamides; E78.5 Hyperlipidemia, unspecified | CPT/HCPCS: 96365; J0878 ==

== ENCOUNTER 2022-10-04 00:20 | Day surgery (SDC) | payer OTHER ==
[2022-10-04 10:12] LABS: BASOPHILS ABSOLUTE AUTO 0.04 K/mm3 (0.00-0.23); BASOPHILS PERCENT AUTO 1 % (0-2); EOSINOPHILS ABSOLUTE AUTO 0.36 K/mm3 (0.00-0.68); EOSINOPHILS PERCENT AUTO 5 % (0-6); Hematocrit 41.1 % (37.0-53.0); Hemoglobin 13.8 g/dL (13.5-17.5); IMMATURE GRAN ABSOLUTE AUTO 0.02 K/mm3 (0.00-0.10); IMMATURE GRAN PERCENT AUTO 0 % (0-1); LYMPHOCYTES ABSOLUTE AUTO 1.24 K/mm3 (0.84-5.20); LYMPHOCYTES PERCENT AUTO 16 % (21-46); MONOCYTES ABSOLUTE AUTO 0.43 K/mm3 (0.16-1.47); MONOCYTES PERCENT AUTO 6 % (4-13); Mean Corpuscular HGB 29.7 pg (26.0-34.0); Mean Corpuscular HGB Conc 33.6 g/dL (31.5-36.5); Mean Corpuscular Volume 88 fL (80-100); Mean Platelet Volume 8.4 fL (9.1-12.4); NEUTROPHILS ABSOLUTE AUTO 5.78 K/mm3 (1.96-9.15); NEUTROPHILS PERCENT AUTO 73 % (41-73); Platelet Count 237 K/mm3 (150-400); RDW Standard Deviation 38.5 fL (35.1-46.3); Red Blood Cell Count 4.65 M/mm3 (4.30-5.90); White Blood Cell Count 7.87 K/mm3 (4.00-11.30)
[2022-10-04 10:37] LABS: Albumin, Blood 3.1 g/dL (3.4-5.0); Albumin/Globulin Ratio 0.7 (0.8-1.8); Bilirubin, Total 0.6 mg/dL (0.1-1.0); Bun/Creatinine Ratio 14.6 (12.0-20.0); Calcium, Blood 9.3 mg/dL (8.5-10.1); Creatinine, Blood 0.82 mg/dL (0.60-1.20); Globulin, Blood 4.5 g/dL (2.2-4.0); Potassium, Blood 4.4 mmol/L (3.5-5.5); Total Protein, Blood 7.6 g/dL (6.4-8.2)
== END 2022-10-04 09:27 | disposition home or self-care (01) ==
LOC: ATC 00:20
PROVIDERS: Student in an Organized Health Care Education/Training Program
DX: I33.0 Acute and subacute infective endocarditis (principal); E11.621 Type 2 diabetes mellitus with foot ulcer; E11.42 Type 2 diabetes mellitus with diabetic polyneuropathy; L97.519 Non-pressure chronic ulcer of other part of right foot with unspecified severity; Z79.4 Long term (current) use of insulin; Z79.84 Long term (current) use of oral hypoglycemic drugs; Z88.2 Allergy status to sulfonamides; E78.5 Hyperlipidemia, unspecified
CPT/HCPCS: 80053; 82550; 85025; 96365; J0878

== ENCOUNTER 2022-10-05 01:00 | Day surgery (SDC) | payer OTHER | END 2022-10-05 09:46 | disposition home or self-care (01) | LOC: ATC 01:00 | DX: I33.0 Acute and subacute infective endocarditis (principal); Z88.2 Allergy status to sulfonamides; F32.A Depression, unspecified; E11.9 Type 2 diabetes mellitus without complications; Z79.84 Long term (current) use of oral hypoglycemic drugs; E78.5 Hyperlipidemia, unspecified; E11.621 Type 2 diabetes mellitus with foot ulcer; E11.42 Type 2 diabetes mellitus with diabetic polyneuropathy; L97.519 Non-pressure chronic ulcer of other part of right foot with unspecified severity | CPT/HCPCS: 96365; J0878 ==

== ENCOUNTER 2022-10-06 01:23 | Day surgery (SDC) | payer OTHER | END 2022-10-06 09:31 | disposition home or self-care (01) | LOC: ATC 01:23 | DX: I33.0 Acute and subacute infective endocarditis (principal); E11.621 Type 2 diabetes mellitus with foot ulcer; L97.519 Non-pressure chronic ulcer of other part of right foot with unspecified severity; E11.42 Type 2 diabetes mellitus with diabetic polyneuropathy; Z79.4 Long term (current) use of insulin; Z79.84 Long term (current) use of oral hypoglycemic drugs; E78.5 Hyperlipidemia, unspecified; F41.9 Anxiety disorder, unspecified | CPT/HCPCS: 96365; J0878 ==

== ENCOUNTER 2022-10-09 00:51 | Day surgery (SDC) | payer OTHER | END 2022-10-09 09:05 | disposition home or self-care (01) | LOC: ATC 00:51 | DX: I33.0 Acute and subacute infective endocarditis (principal) | CPT/HCPCS: J0878 ==

== ENCOUNTER 2022-10-10 02:06 | Day surgery (SDC) | payer OTHER | END 2022-10-10 09:01 | disposition home or self-care (01) | LOC: ATC 02:06 | DX: I33.0 Acute and subacute infective endocarditis (principal); E11.42 Type 2 diabetes mellitus with diabetic polyneuropathy; E78.5 Hyperlipidemia, unspecified; M81.0 Age-related osteoporosis without current pathological fracture; Z89.411 Acquired absence of right great toe; Z79.85 Long-term (current) use of injectable non-insulin antidiabetic drugs; Z88.2 Allergy status to sulfonamides | CPT/HCPCS: J0878 ==

== ENCOUNTER 2022-10-11 00:19 | Day surgery (SDC) | payer OTHER ==
[2022-10-11 08:51] LABS: BASOPHILS ABSOLUTE AUTO 0.04 K/mm3 (0.00-0.23); BASOPHILS PERCENT AUTO 0 % (0-2); EOSINOPHILS ABSOLUTE AUTO 0.46 K/mm3 (0.00-0.68); EOSINOPHILS PERCENT AUTO 4 % (0-6); Hematocrit 39.5 % (37.0-53.0); Hemoglobin 13.6 g/dL (13.5-17.5); IMMATURE GRAN ABSOLUTE AUTO 0.05 K/mm3 (0.00-0.10); IMMATURE GRAN PERCENT AUTO 0 % (0-1); LYMPHOCYTES ABSOLUTE AUTO 1.36 K/mm3 (0.84-5.20); LYMPHOCYTES PERCENT AUTO 12 % (21-46); MONOCYTES ABSOLUTE AUTO 0.74 K/mm3 (0.16-1.47); MONOCYTES PERCENT AUTO 6 % (4-13); Mean Corpuscular HGB 29.8 pg (26.0-34.0); Mean Corpuscular HGB Conc 34.4 g/dL (31.5-36.5); Mean Corpuscular Volume 87 fL (80-100); Mean Platelet Volume 8.2 fL (9.1-12.4); NEUTROPHILS ABSOLUTE AUTO 8.93 K/mm3 (1.96-9.15); NEUTROPHILS PERCENT AUTO 77 % (41-73); Platelet Count 227 K/mm3 (150-400); RDW Coefficient Variation 12.2 % (11.7-14.2); RDW Standard Deviation 38.6 fL (35.1-46.3); Red Blood Cell Count 4.56 M/mm3 (4.30-5.90); White Blood Cell Count 11.58 K/mm3 (4.00-11.30)
[2022-10-11 09:20] LABS: Albumin/Globulin Ratio 0.6 (0.8-1.8); Calcium, Blood 9.4 mg/dL (8.5-10.1); Creatinine, Blood 0.93 mg/dL (0.60-1.20); Globulin, Blood 4.9 g/dL (2.2-4.0); Potassium, Blood 4.4 mmol/L (3.5-5.5); Total Protein, Blood 7.9 g/dL (6.4-8.2)
== END 2022-10-11 09:03 | disposition home or self-care (01) ==
LOC: ATC 00:19
PROVIDERS: Internal Medicine
DX: I33.0 Acute and subacute infective endocarditis (principal); E11.42 Type 2 diabetes mellitus with diabetic polyneuropathy; E78.5 Hyperlipidemia, unspecified; M81.0 Age-related osteoporosis without current pathological fracture; Z89.411 Acquired absence of right great toe; Z79.85 Long-term (current) use of injectable non-insulin antidiabetic drugs; Z88.2 Allergy status to sulfonamides
CPT/HCPCS: 80053; 82550; 85025; J0878

== ENCOUNTER 2022-10-12 01:14 | Day surgery (SDC) | payer OTHER | END 2022-10-12 09:06 | disposition home or self-care (01) | LOC: ATC 01:14 | DX: I33.0 Acute and subacute infective endocarditis (principal); E11.621 Type 2 diabetes mellitus with foot ulcer; E11.42 Type 2 diabetes mellitus with diabetic polyneuropathy; Z79.4 Long term (current) use of insulin; L97.519 Non-pressure chronic ulcer of other part of right foot with unspecified severity; Z79.84 Long term (current) use of oral hypoglycemic drugs; Z88.2 Allergy status to sulfonamides | CPT/HCPCS: J0878 ==

== ENCOUNTER 2022-10-13 01:06 | Day surgery (SDC) | payer OTHER | END 2022-10-13 08:58 | disposition home or self-care (01) | LOC: ATC 01:06 | DX: I33.0 Acute and subacute infective endocarditis (principal); E11.621 Type 2 diabetes mellitus with foot ulcer; L97.519 Non-pressure chronic ulcer of other part of right foot with unspecified severity; E11.42 Type 2 diabetes mellitus with diabetic polyneuropathy; Z79.4 Long term (current) use of insulin; Z79.84 Long term (current) use of oral hypoglycemic drugs; Z88.2 Allergy status to sulfonamides | CPT/HCPCS: J0878 ==

== ENCOUNTER 2022-10-14 01:11 | Day surgery (SDC) | payer OTHER | END 2022-10-14 09:15 | disposition home or self-care (01) | DX: I33.0 Acute and subacute infective endocarditis (principal); E11.621 Type 2 diabetes mellitus with foot ulcer; L97.519 Non-pressure chronic ulcer of other part of right foot with unspecified severity; E11.42 Type 2 diabetes mellitus with diabetic polyneuropathy; Z79.4 Long term (current) use of insulin; Z79.84 Long term (current) use of oral hypoglycemic drugs; E78.5 Hyperlipidemia, unspecified; F41.9 Anxiety disorder, unspecified ==

== ENCOUNTER 2022-10-15 00:17 | Day surgery (SDC) | payer OTHER | END 2022-10-15 09:09 | disposition home or self-care (01) | LOC: ATC 00:17 | DX: I33.0 Acute and subacute infective endocarditis (principal); E11.621 Type 2 diabetes mellitus with foot ulcer; E11.42 Type 2 diabetes mellitus with diabetic polyneuropathy; Z79.4 Long term (current) use of insulin; L97.519 Non-pressure chronic ulcer of other part of right foot with unspecified severity; Z79.84 Long term (current) use of oral hypoglycemic drugs | CPT/HCPCS: 82550; 96365; J0878 ==

== ENCOUNTER 2022-10-16 02:06 | Day surgery (SDC) | payer OTHER | END 2022-10-16 09:12 | disposition home or self-care (01) | LOC: ATC 02:06 | DX: I33.0 Acute and subacute infective endocarditis (principal); E11.621 Type 2 diabetes mellitus with foot ulcer; E11.42 Type 2 diabetes mellitus with diabetic polyneuropathy; L97.519 Non-pressure chronic ulcer of other part of right foot with unspecified severity; Z79.4 Long term (current) use of insulin; Z88.2 Allergy status to sulfonamides; Z79.84 Long term (current) use of oral hypoglycemic drugs | CPT/HCPCS: 96365; J0878 ==

== ENCOUNTER 2022-10-17 03:38 | Day surgery (SDC) | payer OTHER | END 2022-10-17 09:14 | disposition home or self-care (01) | LOC: ATC 03:38 | DX: I33.0 Acute and subacute infective endocarditis (principal); E11.621 Type 2 diabetes mellitus with foot ulcer; E11.42 Type 2 diabetes mellitus with diabetic polyneuropathy; L97.519 Non-pressure chronic ulcer of other part of right foot with unspecified severity; Z79.84 Long term (current) use of oral hypoglycemic drugs; Z88.2 Allergy status to sulfonamides | CPT/HCPCS: 96365; J0878 ==

== ENCOUNTER 2022-10-18 01:56 | Day surgery (SDC) | payer OTHER ==
[2022-10-18 09:45] LABS: BASOPHILS ABSOLUTE AUTO 0.05 K/mm3 (0.00-0.23); BASOPHILS PERCENT AUTO 1 % (0-2); EOSINOPHILS ABSOLUTE AUTO 0.48 K/mm3 (0.00-0.68); EOSINOPHILS PERCENT AUTO 5 % (0-6); Hematocrit 41.4 % (37.0-53.0); Hemoglobin 13.5 g/dL (13.5-17.5); IMMATURE GRAN ABSOLUTE AUTO 0.09 K/mm3 (0.00-0.10); IMMATURE GRAN PERCENT AUTO 1 % (0-1); LYMPHOCYTES ABSOLUTE AUTO 1.23 K/mm3 (0.84-5.20); LYMPHOCYTES PERCENT AUTO 13 % (21-46); MONOCYTES ABSOLUTE AUTO 0.48 K/mm3 (0.16-1.47); MONOCYTES PERCENT AUTO 5 % (4-13); Mean Corpuscular HGB 29.2 pg (26.0-34.0); Mean Corpuscular HGB Conc 32.6 g/dL (31.5-36.5); Mean Corpuscular Volume 90 fL (80-100); Mean Platelet Volume 8.2 fL (9.1-12.4); NEUTROPHILS ABSOLUTE AUTO 7.38 K/mm3 (1.96-9.15); NEUTROPHILS PERCENT AUTO 76 % (41-73); Platelet Count 226 K/mm3 (150-400); RDW Coefficient Variation 12.5 % (11.7-14.2); RDW Standard Deviation 40.5 fL (35.1-46.3); Red Blood Cell Count 4.62 M/mm3 (4.30-5.90); White Blood Cell Count 9.71 K/mm3 (4.00-11.30)
[2022-10-18 10:00] LABS: Albumin/Globulin Ratio 0.7 (0.8-1.8); Bilirubin, Total 0.5 mg/dL (0.1-1.0); Bun/Creatinine Ratio 15.7 (12.0-20.0); Calcium, Blood 9.4 mg/dL (8.5-10.1); Creatinine, Blood 0.89 mg/dL (0.60-1.20); Globulin, Blood 4.5 g/dL (2.2-4.0); Potassium, Blood 4.5 mmol/L (3.5-5.5); Total Protein, Blood 7.5 g/dL (6.4-8.2)
== END 2022-10-18 09:03 | disposition home or self-care (01) ==
LOC: ATC 01:56
PROVIDERS: Family Medicine
DX: I33.0 Acute and subacute infective endocarditis (principal); E11.42 Type 2 diabetes mellitus with diabetic polyneuropathy; E11.621 Type 2 diabetes mellitus with foot ulcer; L97.519 Non-pressure chronic ulcer of other part of right foot with unspecified severity; Z79.4 Long term (current) use of insulin; Z88.2 Allergy status to sulfonamides; E78.5 Hyperlipidemia, unspecified
CPT/HCPCS: 80053; 82550; 85025; 96365; J0878

== ENCOUNTER 2022-10-22 01:46 | Day surgery (SDC) | payer OTHER | END 2022-10-22 09:24 | disposition home or self-care (01) | LOC: ATC 01:46 | DX: I33.0 Acute and subacute infective endocarditis (principal); E11.621 Type 2 diabetes mellitus with foot ulcer; Z79.4 Long term (current) use of insulin; E11.42 Type 2 diabetes mellitus with diabetic polyneuropathy; L97.519 Non-pressure chronic ulcer of other part of right foot with unspecified severity; Z79.84 Long term (current) use of oral hypoglycemic drugs; F41.9 Anxiety disorder, unspecified; F32.A Depression, unspecified; E78.5 Hyperlipidemia, unspecified; Z88.2 Allergy status to sulfonamides | CPT/HCPCS: 82550; 96365; J0878 ==

== ENCOUNTER 2022-10-23 06:08 | Day surgery (SDC) | payer OTHER | END 2022-10-23 08:59 | disposition home or self-care (01) | LOC: ATC 06:08 | DX: I33.0 Acute and subacute infective endocarditis (principal) | CPT/HCPCS: 96365; J0878 ==

== ENCOUNTER 2022-10-27 01:16 | Day surgery (SDC) | payer OTHER | END 2022-10-27 08:49 | disposition home or self-care (01) | LOC: ATC 01:16 | DX: I33.0 Acute and subacute infective endocarditis (principal); E11.621 Type 2 diabetes mellitus with foot ulcer; L97.519 Non-pressure chronic ulcer of other part of right foot with unspecified severity; E11.42 Type 2 diabetes mellitus with diabetic polyneuropathy; Z79.4 Long term (current) use of insulin | CPT/HCPCS: 96365; J0878 ==

== ENCOUNTER 2022-10-28 00:33 | Day surgery (SDC) | payer OTHER | END 2022-10-28 08:53 | disposition home or self-care (01) | LOC: ATC 00:33 | DX: I33.0 Acute and subacute infective endocarditis (principal); E11.621 Type 2 diabetes mellitus with foot ulcer; E11.42 Type 2 diabetes mellitus with diabetic polyneuropathy; L97.519 Non-pressure chronic ulcer of other part of right foot with unspecified severity; Z79.4 Long term (current) use of insulin; Z79.84 Long term (current) use of oral hypoglycemic drugs | CPT/HCPCS: 96365; J0878 ==

== ENCOUNTER 2022-10-29 02:42 | Day surgery (SDC) | payer OTHER ==
[2022-10-29 09:03] LABS: C-REACTIVE PROTEIN, EXT RANGE 10.4 mg/dL (0.000-0.300)
== END 2022-10-29 09:08 | disposition home or self-care (01) ==
LOC: ATC 02:42
PROVIDERS: Internal Medicine
DX: I33.0 Acute and subacute infective endocarditis (principal); E11.621 Type 2 diabetes mellitus with foot ulcer; L97.509 Non-pressure chronic ulcer of other part of unspecified foot with unspecified severity; E11.42 Type 2 diabetes mellitus with diabetic polyneuropathy; Z88.2 Allergy status to sulfonamides
CPT/HCPCS: 82550; 85651; 86140; 96365; J0878

== ENCOUNTER 2022-10-30 00:26 | Day surgery (SDC) | payer OTHER | END 2022-10-30 11:52 | disposition home or self-care (01) | LOC: ATC 00:26 | DX: I33.0 Acute and subacute infective endocarditis (principal) | CPT/HCPCS: 96365; J0878 ==

== ENCOUNTER 2022-10-31 01:07 | Day surgery (SDC) | payer OTHER | END 2022-10-31 09:08 | disposition home or self-care (01) | LOC: ATC 01:07 | DX: I33.0 Acute and subacute infective endocarditis (principal); E11.42 Type 2 diabetes mellitus with diabetic polyneuropathy; E11.621 Type 2 diabetes mellitus with foot ulcer; L97.519 Non-pressure chronic ulcer of other part of right foot with unspecified severity; Z79.4 Long term (current) use of insulin; Z79.84 Long term (current) use of oral hypoglycemic drugs | CPT/HCPCS: 96365; J0878 ==

== ENCOUNTER 2022-11-01 01:05 | Day surgery (SDC) | payer OTHER ==
[2022-11-01 08:51] LABS: BASOPHILS ABSOLUTE AUTO 0.04 K/mm3 (0.00-0.23); BASOPHILS PERCENT AUTO 0 % (0-2); EOSINOPHILS ABSOLUTE AUTO 0.35 K/mm3 (0.00-0.68); EOSINOPHILS PERCENT AUTO 3 % (0-6); Hematocrit 40.5 % (37.0-53.0); Hemoglobin 13.2 g/dL (13.5-17.5); IMMATURE GRAN ABSOLUTE AUTO 0.07 K/mm3 (0.00-0.10); IMMATURE GRAN PERCENT AUTO 1 % (0-1); LYMPHOCYTES ABSOLUTE AUTO 0.99 K/mm3 (0.84-5.20); LYMPHOCYTES PERCENT AUTO 8 % (21-46); MONOCYTES ABSOLUTE AUTO 0.68 K/mm3 (0.16-1.47); MONOCYTES PERCENT AUTO 6 % (4-13); Mean Corpuscular HGB 28.3 pg (26.0-34.0); Mean Corpuscular HGB Conc 32.6 g/dL (31.5-36.5); Mean Corpuscular Volume 87 fL (80-100); Mean Platelet Volume 8.2 fL (9.1-12.4); NEUTROPHILS ABSOLUTE AUTO 9.64 K/mm3 (1.96-9.15); NEUTROPHILS PERCENT AUTO 82 % (41-73); Platelet Count 311 K/mm3 (150-400); RDW Coefficient Variation 12.2 % (11.7-14.2); RDW Standard Deviation 39.1 fL (35.1-46.3); Red Blood Cell Count 4.66 M/mm3 (4.30-5.90); White Blood Cell Count 11.77 K/mm3 (4.00-11.30)
[2022-11-01 09:06] LABS: Albumin, Blood 2.8 g/dL (3.4-5.0); Albumin/Globulin Ratio 0.6 (0.8-1.8); Bun/Creatinine Ratio 16.4 (12.0-20.0); Calcium, Blood 8.9 mg/dL (8.5-10.1); Creatinine, Blood 0.91 mg/dL (0.60-1.20); Globulin, Blood 4.9 g/dL (2.2-4.0); Potassium, Blood 3.8 mmol/L (3.5-5.5); Total Protein, Blood 7.7 g/dL (6.4-8.2)
--- NOTE | 2022-11-01 10:00 | NUR ---
Spoke with staff at Dr. Rubio's office. Requesting MD to review labs to see if pt needs to continue antibiotics or if they can be dc'd. Pt was hesitant to have PICC discontinued. Pt requested to keep PICC. PICC dsg changed. Office staff state Dr. Rubio had contacted [facility] and will decide how to proceed and will let [facility] staff know. Pt is going out of town for Friday and Friday this weekend. Reji states he will contact Dr. Rubio's office on Friday if we don't hear anything back from today.
== END 2022-11-01 08:56 | disposition home or self-care (01) ==
LOC: ATC 01:05
PROVIDERS: Internal Medicine
DX: I33.0 Acute and subacute infective endocarditis (principal); B95.62 Methicillin resistant Staphylococcus aureus infection as the cause of diseases classified elsewhere
CPT/HCPCS: 80053; 82550; 85025; J0878

== ENCOUNTER 2022-11-08 01:05 | Day surgery (SDC) | payer OTHER | END 2022-11-08 10:45 | disposition home or self-care (01) | LOC: ATC 01:05 | DX: I33.0 Acute and subacute infective endocarditis (principal); B95.62 Methicillin resistant Staphylococcus aureus infection as the cause of diseases classified elsewhere | CPT/HCPCS: 99211 ==

== ENCOUNTER → 2023-03-31 | Outpatient (CLI) | payer OTHER ==
[~2023-03-31] MED LIST changes: +Clindamycin HC150 MG PO
== END ==
LOC: LAB 13:36 → LAB SHORT 13:36
DX: L97.928 Non-pressure chronic ulcer of unspecified part of left lower leg with other specified severity (principal); S81.802D Unspecified open wound, left lower leg, subsequent encounter; R09.89 Other specified symptoms and signs involving the circulatory and respiratory systems
CPT/HCPCS: 87070; 87077; 87147; 87186; 87205

== ENCOUNTER 2023-06-18 12:04 | Emergency (ER) | payer OTHER ==
[~2023-06-18] VITALS: Ht 172.7 cm; Wt 108.9 kg
[2023-06-18 13:18] LABS: Albumin, Blood 3.2 g/dL (3.4-5.0); Albumin/Globulin Ratio 0.8 (0.8-1.8); Bun/Creatinine Ratio 17.9 (12.0-20.0); C-REACTIVE PROTEIN, EXT RANGE 2.12 mg/dL (0.000-0.300); Calcium, Blood 9.4 mg/dL (8.5-10.1); Creatinine, Blood 0.89 mg/dL (0.60-1.20); Globulin, Blood 4.2 g/dL (2.2-4.0); Potassium, Blood 5.8 mmol/L (3.5-5.5); Total Protein, Blood 7.4 g/dL (6.4-8.2)
[2023-06-18 13:50] LABS: BASOPHILS ABSOLUTE AUTO 0.03 K/mm3 (0.00-0.23); BASOPHILS PERCENT AUTO 0 % (0-2); EOSINOPHILS ABSOLUTE AUTO 0.27 K/mm3 (0.00-0.68); EOSINOPHILS PERCENT AUTO 3 % (0-6); Hematocrit 41.1 % (37.0-53.0); Hemoglobin 14.1 g/dL (13.5-17.5); IMMATURE GRAN ABSOLUTE AUTO 0.03 K/mm3 (0.00-0.10); IMMATURE GRAN PERCENT AUTO 0 % (0-1); LYMPHOCYTES ABSOLUTE AUTO 1.09 K/mm3 (0.84-5.20); LYMPHOCYTES PERCENT AUTO 12 % (21-46); MONOCYTES PERCENT AUTO 6 % (4-13); Mean Corpuscular HGB 30.6 pg (26.0-34.0); Mean Corpuscular HGB Conc 34.3 g/dL (31.5-36.5); Mean Corpuscular Volume 89 fL (80-100); Mean Platelet Volume 8.2 fL (9.1-12.4); NEUTROPHILS ABSOLUTE AUTO 7.29 K/mm3 (1.96-9.15); NEUTROPHILS PERCENT AUTO 78 % (41-73); Platelet Count 191 K/mm3 (150-400); RDW Coefficient Variation 12.5 % (11.7-14.2); RDW Standard Deviation 40.1 fL (35.1-46.3); Red Blood Cell Count 4.61 M/mm3 (4.30-5.90); White Blood Cell Count 9.31 K/mm3 (4.00-11.30)
[2023-06-18] MEDS ORDERED: CEPH500 PO (17:26)
[2023-06-18] MEDS ORDERED: Doxycycline Mo100 M1 PO (17:29)
[2023-06-18 20:00] VITALS: BP 129/79
== END 2023-06-18 20:45 | disposition home or self-care (01) ==
LOC: ER 12:04
PROVIDERS: Physician Assistant
DX: L03.011 Cellulitis of right finger (principal); E11.9 Type 2 diabetes mellitus without complications; Z88.2 Allergy status to sulfonamides; Z79.84 Long term (current) use of oral hypoglycemic drugs
CPT/HCPCS: 10060; 73140; 80053; 85025; 86140; 96365-59; 96366-59; 96367-59; 96368; 99283-25; J0692; J3370; J7050

== ENCOUNTER 2023-10-18 12:41 | Inpatient (IN) | payer OTHER ==
[~2023-10-18] VITALS: Ht 172.7 cm; Wt 107.9 kg
[~2023-10-18 12:41] MED LIST changes: +CEPH500 PO; +Doxycycline Mo100 M1 PO; -TRULICITY1.5 MG/0.1 SC; +TRULICITY4.5 MG/0.5 SC
[2023-10-18 14:40] LABS: BASOPHILS ABSOLUTE AUTO 0.06 K/mm3 (0.00-0.23); BASOPHILS PERCENT AUTO 0 % (0-2); EOSINOPHILS PERCENT AUTO 0 % (0-6); Hemoglobin 14.5 g/dL (13.5-17.5); IMMATURE GRAN ABSOLUTE AUTO 0.16 K/mm3 (0.00-0.10); IMMATURE GRAN PERCENT AUTO 1 % (0-1); LYMPHOCYTES ABSOLUTE AUTO 1.01 K/mm3 (0.84-5.20); LYMPHOCYTES PERCENT AUTO 6 % (21-46); MONOCYTES ABSOLUTE AUTO 1.25 K/mm3 (0.16-1.47); MONOCYTES PERCENT AUTO 7 % (4-13); Mean Corpuscular HGB Conc 34.5 g/dL (31.5-36.5); Mean Corpuscular Volume 90 fL (80-100); Mean Platelet Volume 8.4 fL (9.1-12.4); NEUTROPHILS ABSOLUTE AUTO 15.54 K/mm3 (1.96-9.15); NEUTROPHILS PERCENT AUTO 86 % (41-73); Platelet Count 190 K/mm3 (150-400); RDW Coefficient Variation 11.9 % (11.7-14.2); RDW Standard Deviation 38.9 fL (35.1-46.3); Red Blood Cell Count 4.68 M/mm3 (4.30-5.90); White Blood Cell Count 18.02 K/mm3 (4.00-11.30)
[2023-10-18 14:47] LABS: Albumin, Blood 3.1 g/dL (3.4-5.0); Albumin/Globulin Ratio 0.6 (0.8-1.8); Bilirubin, Total 2.1 mg/dL (0.1-1.0); Bun/Creatinine Ratio 18.2 (12.0-20.0); Calcium, Blood 9.9 mg/dL (8.5-10.1); Creatinine, Blood 1.21 mg/dL (0.60-1.20); Globulin, Blood 5.2 g/dL (2.2-4.0); Potassium, Blood 4.5 mmol/L (3.5-5.5); Total Protein, Blood 8.3 g/dL (6.4-8.2)
[2023-10-18 17:52] LABS: Source, Urine Clean Catch
[2023-10-18 18:11] LABS: Magnesium, Blood 1.4 mg/dL (1.6-2.4)
[2023-10-18 18:13] LABS: Appearance, Urine Clear (Clear); Bilirubin, Urine Neg (Neg); Blood, Urine Neg (Neg); Color, Urine Yellow (P-Yellow); Glucose Qualitative, Urine Neg (Neg); Ketones, Urine 2+ (Neg); Leukocyte Esterase, Urine Neg (Neg); Nitrite, Urine Neg (Neg); Protein, Urine Neg (Neg); Urobilinogen, Urine NORM (Normal)
[2023-10-18 19:32] LABS: Influenza A, PCR NEGATIVE (NEGATIVE); Influenza B, PCR NEGATIVE (NEGATIVE); Resp Syncytial Virus, PCR NEGATIVE (NEGATIVE); SARS-Cov-2 (COVID-19) PCR, MMC NEGATIVE (NEGATIVE)
[2023-10-18 22:52] VITALS: BP 156/82
--- NOTE | 2023-10-19 04:04 | NUR ---
SHIFT SUMMARY/ADMISSION NOTE PATIENT A/Ox4, ACCOMPANIED BY SPOUSE AT BEDSIDE. DENIES ACUTE PAIN, WAS MEDICATED IN ED PRIOR TO TRANSFER. STATES Hx OF CHRONIC BACK PAIN AND LEFT SHOULDER PAIN. STATES WAS HERE BEFORE FOR SAME THING, CHRONIC DIABETIC FOOT ULCER. ULCER ON LATERAL LEFT FOOT, SCABBED OVER, NO DRAINAGE, TISH. SURROUNDING AREA OF FOOT IS WARM/RED AND MORE SWOLLEN THAN RIGHT. SBA FOR TRANSFERS, IS ABLE TO STAND/PIVOT AND WALK FROM BED TO BATHROOM WITH MINIMAL ASSISTANCE, MOSTLY INDEPENDENT IN ROOM. NO ACUTE CHANGES NOTED OVERNIGHT. BED LOCKED, CALL LIGHT WITHIN REACH.
[2023-10-19 04:12] VITALS: BP 130/69
[2023-10-19 04:51] LABS: Hematocrit 38.3 % (37.0-53.0); Hemoglobin 13.1 g/dL (13.5-17.5); Mean Corpuscular HGB 31.1 pg (26.0-34.0); Mean Corpuscular HGB Conc 34.2 g/dL (31.5-36.5); Mean Corpuscular Volume 91 fL (80-100); Mean Platelet Volume 8.5 fL (9.1-12.4); Platelet Count 176 K/mm3 (150-400); RDW Standard Deviation 39.9 fL (35.1-46.3); Red Blood Cell Count 4.21 M/mm3 (4.30-5.90); White Blood Cell Count 13.84 K/mm3 (4.00-11.30)
[2023-10-19 05:21] LABS: Albumin, Blood 2.6 g/dL (3.4-5.0); Albumin/Globulin Ratio 0.6 (0.8-1.8); Bilirubin, Direct 0.4 mg/dL (0.0-0.3); Bilirubin, Total 1.4 mg/dL (0.1-1.0); Bun/Creatinine Ratio 17.9 (12.0-20.0); Calcium, Blood 8.8 mg/dL (8.5-10.1); Creatinine, Blood 1.12 mg/dL (0.60-1.20); Globulin, Blood 4.6 g/dL (2.2-4.0); Magnesium, Blood 1.7 mg/dL (1.6-2.4); Total Protein, Blood 7.2 g/dL (6.4-8.2)
[2023-10-19 05:40] LABS: BAND PERCENT MAN 9 % (0-8); BASOPHILS PERCENT MAN 0 % (0-2); EOSINOPHILS PERCENT MAN 0 % (0-6); LYMPHOCYTES ABSOLUTE MAN 0.83 K/mm3 (0.84-5.20); LYMPHOCYTES PERCENT MAN 6 % (21-46); MONOCYTES ABSOLUTE MAN 0.41 K/mm3 (0.16-1.47); MONOCYTES PERCENT MAN 3 % (4-13); NEUTROPHILS ABSOLUTE MAN 12.59 K/mm3 (1.96-9.15); SEG NEUTROPHILS PERCENT MAN 82 % (41-73); TOTAL CELLS COUNTED 100
[2023-10-19 07:32] VITALS: BP 115/67
[2023-10-19 15:36] VITALS: BP 149/85
--- NOTE | 2023-10-19 17:39 | NUR ---
SHIFT SUMMARY: PT A&O X4. PLEASANT AND COOPERATIVE WITH CARE. PT RECEIVED IV ABX THIS SHIFT W/O COMPLAINTS. PT SUPPOSED TO HAVE APT W/ DR. JONES OUTPT TOMORROW. CONSULT PLACED TO DR. JONES, STATES HE WILL BE BY TOMORROW MORNING. 2 POSITIVE BLOOD CULTURES THIS SHIFT, BOTH GRAM POSITIVE COCCI IN CLUSTERS. HOSPITALIST AWARE. WBC TRENDING DOWN. LEFT FOOT VERY RED, SWOLLEN, AND WARM TO THE TOUCH. NO C/O PAIN THIS SHIFT. AT BEDSIDE. CALL LIGHT IN REACH. BED IN LOWEST POSITION.
[2023-10-19 19:59] VITALS: BP 133/72
[2023-10-19] MEDS ORDERED: GRALISE900 MG PO (20:13)
[2023-10-19] MEDS ORDERED: CITALOPRAM HBR30 M1 PO (20:14)
[2023-10-19] MEDS ORDERED: Cymbalta20 MG PO (20:15)
[2023-10-19] MEDS ORDERED: NIGHT TIME PAI1 EAC1 PO (20:18)
[2023-10-20] VITALS (7 sets, daily range): BP systolic 93–117; BP diastolic 61–90
[2023-10-20 05:05] LABS: Hematocrit 37.1 % (37.0-53.0); Hemoglobin 12.6 g/dL (13.5-17.5); Mean Corpuscular Volume 91 fL (80-100); Mean Platelet Volume 8.7 fL (9.1-12.4); Platelet Count 182 K/mm3 (150-400); RDW Coefficient Variation 11.9 % (11.7-14.2); RDW Standard Deviation 40.2 fL (35.1-46.3); Red Blood Cell Count 4.07 M/mm3 (4.30-5.90); White Blood Cell Count 11.47 K/mm3 (4.00-11.30)
[2023-10-20 05:49] LABS: Albumin, Blood 2.1 g/dL (3.4-5.0); Anion Gap 6 mmol/L (6-16); Blood Urea Nitrogen 22 mg/dL (8-24); CO2, Blood 26 mmol/L (21-32); Calcium, Blood 8.4 mg/dL (8.5-10.1); Chloride, Blood 102 mmol/L (98-108); Creatinine, Blood 0.96 mg/dL (0.60-1.20); Glomerular Filtration Rate 89 (60-); Glucose, Blood 184 mg/dL (70-99); Magnesium, Blood 1.7 mg/dL (1.6-2.4); Phosphorus, Blood 2.5 mg/dL (2.5-4.9); Potassium, Blood 3.9 mmol/L (3.5-5.5); Sodium, Blood 134 mmol/L (136-145)
--- NOTE | 2023-10-20 07:47 | NUR ---
SHIFT SUMMARY PATIENT A/Ox4, MEDICATED PER EMAR FOR C/O LUMBAR PAIN, TOLERATED WELL. CONTINUES ON IV Abx THERAPY FOR LEFT LATERAL FOOT INFECTION. DR. JONES IN TO SEE PATIENT AT SHIFT CHANGE, IS TO BE STRICT NON-WEIGHT BEARING TO LLE, NO SURGICAL INTERVENTION AT THIS TIME, CONTINUE ON ABX, WILL SEE PATIENT AGAIN LATER IN AFTERNOON. SBA TO BSC, ABLE TO STAND/PIVOT, MOSTLY INDEPENDENT IN ROOM. NO ACUTE CHANGES NOTED OVERNIGHT. BED LOCKED, CALL LIGHT WITHIN REACH.
--- NOTE | 2023-10-20 09:19 | NUR ---
AFIB RVR AM VITALS PT HAD A HR IN THE 140-150S THAT WOULD JUMP DOWN TO THE 70S. HR SOUNDED IRREGULAR UPON AUSCULTATION. REPORTED TO DR. MAHAN. TELE ORDER OBTAINED AND PLACED. PT RUNNING ARIB RVR IN THE 150S PER INTERACTIVE MEDIA MARKETING DIRECTOR. REPORTED TO DR. MAHAN AT 0913. ORDER FOR XARETOL DAILY AND METOPROLOL TARTRATE PLACED.
--- NOTE | 2023-10-20 15:17 | NUR ---
HR IN THE 140-150S PT RUNNING AFIB T/O SHIFT. PT HR TRENDING UP THIS AFTERNOON. IN THE 140-150S AT APPROX AT 1430. DR. MAHAN NOTIFIED. ORDER FOR 5MG IV METOPROLOL TAKEN & GIVEN AT 1458. PT HR NOW TRENDING DOWN AND STABALIZING IN THE 120S PER GOAT FARMER. PT FOUND TO HAVE A FEVER OF 101.1, TREATED WITH TYLENOL AND WASHCLOTHES. BP FELL TO 93/[address] MAHAN NOTIFIED. ORDER TO TREANSFER TO PCU FOR EMMY MG OBTAINED. NURSING SUP NOTIFIED. AWAITING BED.
--- NOTE | 2023-10-20 15:59 | NUR ---
TRANSFER TO PCU 6 PT TRANSFERED TO PCU [facility]. PT ESCORTED TO NEW ROOM IN BED AND FOLLOWED BEHIND. BELONGINGS SENT WITH THE PATIENT. CARDIZEM AND INSULIN PEN ALSO SENT TO PCU.
--- NOTE | 2023-10-20 17:50 | NUR ---
TRANSFER FROM MEDICAL FLOOR, REPORT FROM RUFUS KAUR. A/A/OX4, HR AFIB 130'S. STARTED ON CARDIZEM 5MG/HR PER ORDERS, NS STARTED AT 150ML/HR PER ORDERS. A/A/OX4, SPOUSE AT BEDSIDE. CARDIAC CONSULT IN EVENING. CARDIZEM DC'D PER VERBAL ORDER FROM DR. PEÑA. PLAN FOR DEENA TOMORROW, CONSENT COMPLETED. NPO AFTER MIDNIGHT. SEE PHOTOS OF RIGHT LL LEG IN CHART. WILL CONTINUE TO MONITOR AND TREAT UNTIL CHANGE OF SHIFT.
[2023-10-20 23:22] LABS: Vancomycin, Trough 11.9 ug/mL (5.0-10.0)
[2023-10-21] VITALS (9 sets, daily range): BP systolic 84–133; BP diastolic 62–93
--- NOTE | 2023-10-21 05:52 | NUR ---
SHIFT SUMMARY NO ACUTE CHANGES THIS SHIFT. VSS. AXO. MRI TO SPINE COMPLETED. MILD HYPOTENSION NOTED BUT MAP >65 T/O SHIFT. PT STRUGGLING WITH SLEEP, REQUESTING LARGE BLOCKS OF TIME UNINTERRUPTED REST, WAS ABLE TO PROVIDE THIS TO PATIENT TO BEST OF ABILITY WITH SAFETY IN MIND. REMAINS IN AFIB, BETTER CONTROLLED IN THE 110'S NOW POST METOPROLOL. LEG WOUNDS REMAIN UNCHANGED. NPO SINCE 0000 FOR DEENA, EDUCATION PROVIDED.
--- NOTE | 2023-10-21 13:05 | NUR ---
PT TOLERATES DEENA PROCEDURE WITH ANESTHESIA WELL. VSS. NADN. CONTINUOUS MONITORING IN PLACE. CALL LIGHT WITHIN REACH
--- NOTE | 2023-10-21 18:35 | NUR ---
SHIFT SUMMARY; ASSUMED CARE AT 0700. A/A/OX4 DURING SHIFT. DEENA COMPLETED TODAY IN [facility], RECOVERED PER ORDERS. MRI COMPLETED ON LEFT FOOT. LEFT FOOT SWOLLEN AND RED, REDNESS IMPROVED FROM YESTERDAY. PHOTOS IN CHART. REMAINS NON WEIGHT BEARING PER ORDERS. IV ABX PER EMAR, SPOUSE AT BEDSIDE. NPO TONIGHT AT MIDNIGHT PER DR. JASSO. VSS, WILL CONTINUE TO MONITOR AND TREAT UNTIL CHANGE OF SHIFT.
[2023-10-22] VITALS (7 sets, daily range): BP systolic 91–120; BP diastolic 61–75
--- NOTE | 2023-10-22 07:31 | NUR ---
NOC SHIFT SUMMARY PT ORIENTED X4 OVERNIGHT, NPO AT 0000. VSS PER PT TREND. PO PAIN MEDS X2 AND TOLERATED WELL. AFIB ON TELEMETRY. PER DR. JONES THIS AM PLAN FOR POTENTIAL AMPUATATION VS I&D. WILL PASS ON TO DAY RN
--- NOTE | 2023-10-22 09:44 | NUR ---
TALKED TO DR. JONES ABOUT PROCEDURE PT AND DEICIDED TO GET THE AMPUTATION. PER DR. JONES, DR. MENDOZA SAID WE WILL HAVE TO WAIT TO DO THE PROCEDURE 48 HRS AFTER THE XERELTO. THE LAST DOSE OF XERLETO WAS ABOUT 10/21. DR. JASSO WILL BE ROUNDING TODAY. PT GIVEN A BREAKFAST TRAY
--- NOTE | 2023-10-22 17:55 | NUR ---
SHIFT SUMMARY PT IS A&OX4, 1P SBA W/ A PIVOT FOR TRANSFER, AND HE HAS BEEN ANSWERING QUESTIONS APPROPRIATELY. HE WAS NPO THIS AM FOR AN AMPUTATION OF THE LLE, BUT IT WAS POSTPONED DUE TO HIM BEING DOSED W/ XARELTO ON 10/21.SEE PREVIOUS NOTE FOR MORE INFORMATION. ON TELE HE HAS BEEN AFIB AND HAS HAD NO COMPLAINTS OF ANGINA OR CHEST PRESSURE. HE HAS BEEN ON RA AND DENIES ANY SOB. THE PT HAS HAD SOME PAIN IN HIS RIGHT SHOULDER AND HAS A LIDOCAINE PATCH WAS APPLIED AND POSITIONING HAS HELPED W/ THE PAIN. HE WAS MADE SURGICAL STATUS W/ TELE THIS MORNING. NO ACUTE EVENTS THIS SHIFT. FIRE IGNITION RISK HAS BEEN EVALUATED.
--- NOTE | 2023-10-22 20:18 | NUR ---
NURSING PCU NOC SHIFT: Assumed care of pt at approx 1900. A/O, pleasant, cooperative w/care. Mild anxiety/frustration d/t current medical condition though expressess thoughts/concerns well. C/O 9.5/10 pain r/t L foot, also c/o CW discomfort r/t coughing from recent DEENA. Wounds to LLE which is swollen, red, and weeping. 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 Repositions independently in bed, pivot xfer w/staff assist. Tele in place, afib w/HR 120's, SBP 112 prior to bedtime meds, no c/o CP/pressure. L/S cta t/o, O2 sat upper 90's on RA, denies dyspnea, occ dry/HEAD OF [employer]ORE [employer]PERATIONS cough. Abd SNT, bt+, voiding w/o difficulty per pt. PIV x1, s/l. No s/s of acute distress this evening. Pain med administered pt pt request. Pt denies any current needs or questions regarding plan of care. Call light in reach, cont to monitor for any changes.
[2023-10-23] VITALS (7 sets, daily range): BP systolic 92–123; BP diastolic 65–86
[2023-10-23 03:50] LABS: BASOPHILS ABSOLUTE AUTO 0.07 K/mm3 (0.00-0.23); BASOPHILS PERCENT AUTO 1 % (0-2); EOSINOPHILS PERCENT AUTO 2 % (0-6); Hemoglobin 12.6 g/dL (13.5-17.5); IMMATURE GRAN ABSOLUTE AUTO 0.24 K/mm3 (0.00-0.10); IMMATURE GRAN PERCENT AUTO 2 % (0-1); LYMPHOCYTES ABSOLUTE AUTO 1.55 K/mm3 (0.84-5.20); LYMPHOCYTES PERCENT AUTO 13 % (21-46); MONOCYTES PERCENT AUTO 7 % (4-13); Mean Corpuscular HGB 30.9 pg (26.0-34.0); Mean Corpuscular HGB Conc 34.1 g/dL (31.5-36.5); Mean Corpuscular Volume 91 fL (80-100); Mean Platelet Volume 8.5 fL (9.1-12.4); NEUTROPHILS ABSOLUTE AUTO 9.01 K/mm3 (1.96-9.15); NEUTROPHILS PERCENT AUTO 76 % (41-73); Platelet Count 367 K/mm3 (150-400); RDW Coefficient Variation 12.2 % (11.7-14.2); RDW Standard Deviation 40.1 fL (35.1-46.3); Red Blood Cell Count 4.08 M/mm3 (4.30-5.90); White Blood Cell Count 11.87 K/mm3 (4.00-11.30)
--- NOTE | 2023-10-23 05:35 | NUR ---
NURSING PCU NOC SHIFT SUMMARY: No significant changes noted t/o shift. HR 100-120, SBP 90's, no c/o dizziness/lightheadedness. Respiratory status unchanged. Plan for NPO at 2400 for L BKA 10/24. Plan of care discussed and questions addressed. Pt has spent majority of shift resting in bed though has had some difficulty sleeping and awakes frequently. Denies any current needs, call light in reach. Rpt given to CN to assume care for remainder of shift.
[2023-10-23 06:10] LABS: Albumin/Globulin Ratio 0.4 (0.8-1.8); Bilirubin, Total 0.7 mg/dL (0.1-1.0); Bun/Creatinine Ratio 21.7 (12.0-20.0); Calcium, Blood 8.5 mg/dL (8.5-10.1); Creatinine, Blood 0.92 mg/dL (0.60-1.20); Potassium, Blood 4.2 mmol/L (3.5-5.5)
--- NOTE | 2023-10-23 17:21 | NUR ---
SHIFT SUMMARY PT IS A&OX4, CALLS APPROPRAITELY, AND CAN MAKE HIS NEEDS KNOWN. ON TELE HE HAS BEEN AFIB 90'S-100'S W/O ANY ANGINA. HIS SP02 >90% ON RA W/O ANY SOB. HE HAS BEEN HAVING FREQUENT PAIN IN HE LLE AND HAS NEEDED TO BE MEDICATED PER EMAR. HE WILL BE NPO AT 0000 FOR LLE AMPUTAION WITH DR JASSO. WE HAVE HAD NO ACUTE EVENTS THIS SHIFT. FIRE IGNITION RISK HAS BEEN ASSESSED AND EDUCATION HAS BEEN PROVIDED.
--- NOTE | 2023-10-23 23:20 | NUR ---
TRANSFER NOTE: CALLED REPORT TO APPRENTICE PLUMBER REID ORELLANA. ALL QUESTIONS ANSWERED, VSS UPON TRANSFER TO ROOM 210.
--- NOTE | 2023-10-23 23:30 | NUR ---
ARRIVAL NOTE PT TRANSFER TO UNIT FROM PCU. PT A&O x4, PLESANT & COOPERATIVE. VSS, 02 SAT >94% ON RA, HR IN 120s- PT ON TELE. ALLEN THOMPSON, PT REPORTS VISUALIZATION REMAINS UNCHANGED FROM TODAY. PT REPORTS PAIN CURRENTLY TOLERABLE. PT TO BE NPO AT MIDNIGHT FOR ANTICIPATED L BKA SURGERY IN AM. ORIENTED TO UNIT, PERSONAL PHONE CHARGING, CALL LIGHT WITHIN REACH.
[2023-10-24] VITALS (14 sets, daily range): BP systolic 96–128; BP diastolic 70–85
--- NOTE | 2023-10-24 04:45 | NUR ---
SHIFT SUMMARY NO ACUTE CHANGES OVERNIGHT. NPO SINCE MIDNIGHT. ANTICIPATED SURGERY TODAY. CALL LIGHT WITHIN REACH, WILL REPORT TO DAY RN.
[2023-10-24 05:32] LABS: International Normalized Ratio 1.08; Prothrombin Time Results 11.3 Sec (9.7-11.5)
[2023-10-24 18:01] LABS: Creatinine, Blood 0.92 mg/dL (0.60-1.20); Vancomycin, Trough 14.8 ug/mL (5.0-10.0)
--- NOTE | 2023-10-24 18:10 | NUR ---
SHIFT SUMMARY POD0 L BKA, STUMP SOCK IN PLACE, C/D/I. ON 2L NC, SPO2 92-95%. TOLERATING PO INTAKE, MEDICATED PER EMAR.PATIENT IS AOX4, USES CALL LIGHT APPROPRIATELY. IN ROOM FOR ASSISTANCE AND COMFORT. VSS, WILL REPORT TO NIGHT RN.
[2023-10-25 02:45] VITALS: BP 122/79
[2023-10-25 05:10] LABS: Hematocrit 35.4 % (37.0-53.0); Hemoglobin 11.6 g/dL (13.5-17.5); Mean Corpuscular HGB 30.4 pg (26.0-34.0); Mean Corpuscular HGB Conc 32.8 g/dL (31.5-36.5); Mean Corpuscular Volume 93 fL (80-100); Mean Platelet Volume 8.6 fL (9.1-12.4); Platelet Count 420 K/mm3 (150-400); RDW Coefficient Variation 12.2 % (11.7-14.2); RDW Standard Deviation 41.7 fL (35.1-46.3); Red Blood Cell Count 3.82 M/mm3 (4.30-5.90)
[2023-10-25 05:36] LABS: Bun/Creatinine Ratio 30.5 (12.0-20.0); Calcium, Blood 8.7 mg/dL (8.5-10.1); Creatinine, Blood 0.92 mg/dL (0.60-1.20); Potassium, Blood 5.5 mmol/L (3.5-5.5)
--- NOTE | 2023-10-25 05:55 | NUR ---
SHIFT SUMMARY POD 1 L BKA. NO ACUTE CHANGES OVERNIGHT. VS WNL FOR PT. TELE NS 72. STUMP SOCK C/D/I. PT REPORTS PAIN TOLERABLE, MEDICATED PER EMAR. TOLERATING ORALS. ABX & IV FLUIDS RUNNING TKO. PT HAS NOT AMBULATED YET POST-OP. CAN MOVE STUMP WHEN ASKED, NEUROPATHY AFFECTS PT SENSATION OF STUMP. VOIDING INDEPENDENTLY. CALL LIGHT WITHIN REACH, BED IN LOWEST POSITION, WILL REPORT TO DAY RN.
[2023-10-25 07:37] VITALS: BP 114/75
[2023-10-25 15:19] VITALS: BP 118/73
--- NOTE | 2023-10-25 18:24 | NUR ---
SHIFT SUMMARY PT A&OX4, VSS/RA/CBGS ACHS/TELE NSR @ 74 BPM, CINDY PO, VOIDING/URINAL, OOB STAND PIVOT WITH FWW/GB/2 PP MAX ASSIST, UP TO CHAIR, PAIN MANAGED, POD1 L BKA, DRESSING CDI, ELEVATED. WILL REPORT TO ONCOMING NOC RN.
[2023-10-25 19:05] VITALS: BP 119/77
--- NOTE | 2023-10-26 04:13 | NUR ---
SUMMARY NO NEW ISSUES NOTED. PT PAIN MANAGED WELL. PT DRESSING IS C/D/I. PT HAS BEEN RESTING COMFORTABLY. PT HAS BEEN VOIDING WELL. CALL LIGHT IN REACH.
[2023-10-26 04:52] VITALS: BP 106/74
[2023-10-26 05:42] LABS: BASOPHILS ABSOLUTE AUTO 0.03 K/mm3 (0.00-0.23); BASOPHILS PERCENT AUTO 0 % (0-2); EOSINOPHILS ABSOLUTE AUTO 0.13 K/mm3 (0.00-0.68); EOSINOPHILS PERCENT AUTO 1 % (0-6); Hematocrit 34.2 % (37.0-53.0); Hemoglobin 11.4 g/dL (13.5-17.5); IMMATURE GRAN ABSOLUTE AUTO 0.36 K/mm3 (0.00-0.10); IMMATURE GRAN PERCENT AUTO 3 % (0-1); LYMPHOCYTES ABSOLUTE AUTO 1.67 K/mm3 (0.84-5.20); LYMPHOCYTES PERCENT AUTO 16 % (21-46); MONOCYTES ABSOLUTE AUTO 0.33 K/mm3 (0.16-1.47); MONOCYTES PERCENT AUTO 3 % (4-13); Mean Corpuscular HGB 31.1 pg (26.0-34.0); Mean Corpuscular HGB Conc 33.3 g/dL (31.5-36.5); Mean Corpuscular Volume 93 fL (80-100); Mean Platelet Volume 8.4 fL (9.1-12.4); NEUTROPHILS ABSOLUTE AUTO 8.19 K/mm3 (1.96-9.15); NEUTROPHILS PERCENT AUTO 76 % (41-73); Platelet Count 436 K/mm3 (150-400); RDW Coefficient Variation 12.3 % (11.7-14.2); RDW Standard Deviation 42.8 fL (35.1-46.3); Red Blood Cell Count 3.66 M/mm3 (4.30-5.90); White Blood Cell Count 10.71 K/mm3 (4.00-11.30)
[2023-10-26 06:06] LABS: Bun/Creatinine Ratio 26.4 (12.0-20.0); Calcium, Blood 8.4 mg/dL (8.5-10.1); Creatinine, Blood 0.87 mg/dL (0.60-1.20); Potassium, Blood 4.5 mmol/L (3.5-5.5)
[2023-10-26 07:34] VITALS: BP 115/77
[2023-10-26 16:44] VITALS: BP 109/77
[2023-10-26 19:20] VITALS: BP 107/71
[2023-10-27 03:10] VITALS: BP 117/81
[2023-10-27 07:13] VITALS: BP 119/75
--- NOTE | 2023-10-27 13:10 | NUR ---
Pt. is awake in bed and welcomes my visit. Pt. is pleasant, but verbalizes that he is still adjusting to having lost a leg to amputation. Spouse soon arrives. Facilitate a life review, and in the process establish rapport. Pt. displays evidence of having strong character and a good support system at home. Prayed with the Pt. Pt. and spouse verbalized gratitiude for the spiritual care visit.
[2023-10-27 15:59] VITALS: BP 124/73
--- NOTE | 2023-10-27 17:28 | NUR ---
SHIFT SUMMARY PT RESTED COMFORTABLY FOR MOST OF SHIFT. PT WORKED WITH THERAPY AND REPORTED MINIMAL PAIN. LUNGS CTA, VSS. PT IS RESTING IN BED WITH AT BEDSIDE, BREATHING EVEN AND UNLABORED, BED IN LOWEST POSITION, CALL LIGHT WITHIN REACH.
[2023-10-27 20:39] VITALS: BP 112/73
--- NOTE | 2023-10-28 04:32 | NUR ---
SHIFT SUMMARY PT HAD LARGE BM AT START OF SHIFT. 1 NORCO FOR PAIN PRN. L STUMP SOCK APPEARS CDI. UP WITH 1 SBA USING FWW TO RESTROOM. HAS RESTED WELL T/O SHIFT. USES CALL LIGHT APPROPRIATELY.
[2023-10-28 04:45] VITALS: BP 139/76
[2023-10-28 07:52] VITALS: BP 123/71
[2023-10-28] MEDS ORDERED: DULO30 PO (10:40)
[2023-10-28] MEDS ORDERED: CUBICIN RF500 M1 IV (10:41)
[2023-10-28] MEDS ORDERED: VITAMIN D5000 UNIT PO (10:41)
[2023-10-28] MEDS ORDERED: Norco 5-325 Ta1 EACH PO (10:42)
[2023-10-28] MEDS ORDERED: METO50ER PO (10:43)
[2023-10-28] MEDS ORDERED: LANTUS SOL100 UNIT/1 SC (10:43)
[2023-10-28] MEDS ORDERED: VISBIOME 112.51 EACH PO (10:44)
[2023-10-28] MEDS ORDERED: SENN187 PO (10:44)
[2023-10-28] MEDS ORDERED: XARELTO20 MG PO (10:44)
--- NOTE | 2023-10-28 15:10 | NUR ---
DISCHARGE SUMMARY POD4 L BKA, A/OX4, VSS, TOLERATING PO, PAIN WELL MANAGED, ABLE TO SELF TRANSFER FROM BED TO CHAIR VIA STAND PIVOT WITH AND WITHOUT FWW. STUMP SOCK C/D/I, DRESSING TO SIRISHA POWERGLIDE CHANGED JUST BEFORE DISCHARGE. DISCUSSED DISCHARGE INSTRUCTIONS WITH THE PATIENT AND HIS INCLUDING HOME CARE, MEDICATIONS WHICH WERE FAXED TO [facility] AND A HARD SCRIPT FOR PAIN MEDS ORDERED, AND FOLLOW UP APPOINTMENTS. EMPHASIS ON WOUND CARE FOR BKA DISCUSSED AT LENGTH ON HOW TO MANAGE AT HOME, WHAT TO DO IF DRAINAGE IS NOTED ON OUTER DRESSING, SHOWERING, AND CONTACTING SURGEON SHOULD CONCERNS ARISE. NO QUESTIONS AT THIS TIME. POWERGLIDE LEFT IN PLACE FOR HOME INFUSIONS. PT ESCORTED OUT VIA WC TO PRIVATE AUTO TO GO HOME.
--- NOTE | 2023-10-28 15:13 | NUR ---
DISCHARGE PT DISCHARGED AT APPROXIMATELY 15:00 VIA WC TO POV. VSS, STUMP SOCK IN PLACE, C/D/I. BREATHING EVEN AND UNLABORED. PAIN CONTROLLED PER NONPHARMACOLOGIC INTERVENTIONS. PT STATES PAIN IS TOLERABLE. POWER GLIDE DRESSING CHANGED BY RN. DISCHARGE INSTRUCTIONS GIVEN BY RN. PT AND STATED UNDERSTANDING AND ALL QUESTIONS WERE ANSWERED.
== END 2023-10-28 15:06 | disposition home or self-care (01) | DRG 474 ==
LOC: ER 12:41 → PCU 20:52 → SURS 20:52 → MEDS 20:52 → PCU 10-20 15:47 → SURS 10-23 23:36
PROVIDERS: Emergency Medicine; Family Medicine; Internal Medicine; Orthopaedic Surgery; Physician Assistant; ADMIT Internal Medicine
PROC: 3E03329 Introduction of Other Anti-infective into Peripheral Vein, Percutaneous Approach (ICD-10-PCS; 2023-10-18)
PROC: 0Y6J0Z3 Detachment at Left Lower Leg, Low, Open Approach (ICD-10-PCS; principal; 2023-10-24 12:30)
DX: T84.69XA Infection and inflammatory reaction due to internal fixation device of other site, initial encounter (principal); A41.02 Sepsis due to Methicillin resistant Staphylococcus aureus; R65.20 Severe sepsis without septic shock; I96 Gangrene, not elsewhere classified; L02.612 Cutaneous abscess of left foot; M86.9 Osteomyelitis, unspecified; L03.116 Cellulitis of left lower limb; E11.69 Type 2 diabetes mellitus with other specified complication; I48.0 Paroxysmal atrial fibrillation; G25.81 Restless legs syndrome; M25.512 Pain in left shoulder; E88.09 Other disorders of plasma-protein metabolism, not elsewhere classified; E78.5 Hyperlipidemia, unspecified; I10 Essential (primary) hypertension; I08.0 Rheumatic disorders of both mitral and aortic valves; E11.621 Type 2 diabetes mellitus with foot ulcer; L97.529 Non-pressure chronic ulcer of other part of left foot with unspecified severity; E83.42 Hypomagnesemia; E80.6 Other disorders of bilirubin metabolism; E11.42 Type 2 diabetes mellitus with diabetic polyneuropathy; Z88.2 Allergy status to sulfonamides; Z79.84 Long term (current) use of oral hypoglycemic drugs; Z79.85 Long-term (current) use of injectable non-insulin antidiabetic drugs; Z11.52 Encounter for screening for COVID-19; Z89.411 Acquired absence of right great toe; Z89.422 Acquired absence of other left toe(s); Z89.421 Acquired absence of other right toe(s); Z87.891 Personal history of nicotine dependence
CPT/HCPCS: 0241U; 36415; 71046; 72157; 72158; 73010; 73701; 73718; 73721; 80048; 80053; 80069; 80202; 81003; 82248; 82565; 82947; 83036; 83605; 83690; 83735; 84145; 85014; 85018; 85025; 85027; 85610; 85651; 86140; 87040; 87077; 87147; 87186; 88307; 93005; 93010; 93306; 93312; 93325; 96365-59; 96375-59; 97110; 97110-CQ; 97116-CQ; 97162; 97530-CQ; 99285-25; A9270; A9579; J0171; J0330; J0696; J0878; J1100; J1170; J1650; J1815; J2185; J2405; J2704; J3010; J3370; J3475; J7030; J7050; Q9967

== ENCOUNTER 2023-10-29 02:58 | Day surgery (SDC) | payer OTHER ==
[~2023-10-29 02:58] MED LIST changes: +CITALOPRAM HBR30 M1 PO; +Cymbalta20 MG PO; +DULO30 PO; +GRALISE900 MG PO; +LANTUS SOL100 UNIT/1 SC; +METO50ER PO; +NIGHT TIME PAI1 EAC1 PO; +Norco 5-325 Ta1 EACH PO; +SENN187 PO; +VISBIOME 112.51 EACH PO; +VITAMIN D5000 UNIT PO; +XARELTO20 MG PO
[2023-10-29 15:09] VITALS: BP 114/66
== END 2023-10-29 15:45 | disposition home or self-care (01) ==
LOC: ATC 02:58
DX: T87.44 Infection of amputation stump, left lower extremity (principal); E11.69 Type 2 diabetes mellitus with other specified complication; E11.40 Type 2 diabetes mellitus with diabetic neuropathy, unspecified; E78.5 Hyperlipidemia, unspecified; G25.81 Restless legs syndrome; L97.523 Non-pressure chronic ulcer of other part of left foot with necrosis of muscle; E11.621 Type 2 diabetes mellitus with foot ulcer; M86.9 Osteomyelitis, unspecified; Z88.2 Allergy status to sulfonamides; A41.9 Sepsis, unspecified organism; R65.20 Severe sepsis without septic shock
CPT/HCPCS: 96365; J0878

== ENCOUNTER → 2023-10-30 | Outpatient (CLI) | payer OTHER ==
[2023-10-30 13:34] LABS: Hematocrit 38.1 % (37.0-53.0); Hemoglobin 12.4 g/dL (13.5-17.5); Mean Corpuscular HGB 30.4 pg (26.0-34.0); Mean Corpuscular HGB Conc 32.5 g/dL (31.5-36.5); Mean Corpuscular Volume 93 fL (80-100); Mean Platelet Volume 8.3 fL (9.1-12.4); Platelet Count 430 K/mm3 (150-400); RDW Coefficient Variation 12.5 % (11.7-14.2); Red Blood Cell Count 4.08 M/mm3 (4.30-5.90); White Blood Cell Count 13.45 K/mm3 (4.00-11.30)
[2023-10-30 14:22] LABS: Anion Gap 4 mmol/L (6-16); Blood Urea Nitrogen 16 mg/dL (8-24); Bun/Creatinine Ratio 17.7 (12.0-20.0); CO2, Blood 30 mmol/L (21-32); Calcium, Blood 8.6 mg/dL (8.5-10.1); Chloride, Blood 102 mmol/L (98-108); Creatinine, Blood 0.91 mg/dL (0.60-1.20); Glomerular Filtration Rate 95 (60-); Glucose, Blood 154 mg/dL (70-99); Sodium, Blood 136 mmol/L (136-145)
== END ==
LOC: LAB SHORT 12:38 → LAB 12:38
PROVIDERS: Internal Medicine
DX: L03.116 Cellulitis of left lower limb (principal)
CPT/HCPCS: 80048; 82550; 85027

== ENCOUNTER → 2023-11-06 | Outpatient (CLI) | payer OTHER ==
[2023-11-06 15:45] LABS: Hematocrit 37.8 % (37.0-53.0); Hemoglobin 12.3 g/dL (13.5-17.5); Mean Corpuscular HGB 29.7 pg (26.0-34.0); Mean Corpuscular HGB Conc 32.5 g/dL (31.5-36.5); Mean Corpuscular Volume 91 fL (80-100); Mean Platelet Volume 8.3 fL (9.1-12.4); Platelet Count 345 K/mm3 (150-400); RDW Coefficient Variation 12.3 % (11.7-14.2); RDW Standard Deviation 41.1 fL (35.1-46.3); Red Blood Cell Count 4.14 M/mm3 (4.30-5.90); White Blood Cell Count 11.35 K/mm3 (4.00-11.30)
[2023-11-06 17:09] LABS: Calcium, Blood 9.1 mg/dL (8.5-10.1); Creatinine, Blood 0.96 mg/dL (0.60-1.20); Potassium, Blood 4.1 mmol/L (3.5-5.5)
== END ==
LOC: LAB 12:00 → LAB SHORT 12:00
PROVIDERS: Internal Medicine
DX: L03.116 Cellulitis of left lower limb (principal)
CPT/HCPCS: 80048; 82550; 85027

== ENCOUNTER → 2023-11-13 | Outpatient (CLI) | payer OTHER ==
[2023-11-13 13:31] LABS: Hematocrit 40.5 % (37.0-53.0); Hemoglobin 13.3 g/dL (13.5-17.5); Mean Corpuscular HGB 29.5 pg (26.0-34.0); Mean Corpuscular HGB Conc 32.8 g/dL (31.5-36.5); Mean Corpuscular Volume 90 fL (80-100); Mean Platelet Volume 8.4 fL (9.1-12.4); Platelet Count 259 K/mm3 (150-400); RDW Coefficient Variation 12.3 % (11.7-14.2); RDW Standard Deviation 40.4 fL (35.1-46.3); Red Blood Cell Count 4.51 M/mm3 (4.30-5.90); White Blood Cell Count 12.42 K/mm3 (4.00-11.30)
[2023-11-13 13:41] LABS: Bun/Creatinine Ratio 26.6 (12.0-20.0); Calcium, Blood 9.1 mg/dL (8.5-10.1); Creatinine, Blood 0.9 mg/dL (0.60-1.20); Potassium, Blood 4.7 mmol/L (3.5-5.5)
== END ==
LOC: LAB SHORT 12:20 → LAB 12:20
PROVIDERS: Internal Medicine
DX: L03.116 Cellulitis of left lower limb (principal)
CPT/HCPCS: 80048; 82550; 85027

== ENCOUNTER 2024-09-13 11:28 | Day surgery (SDC) | payer OTHER ==
[~2024-09-13] VITALS: Ht 172.7 cm; Wt 87.0 kg
[~2024-09-13 11:28] MED LIST changes: +Cleocin HCl150 MG PO; +GLIM2 PO; +INSULANPEN SC; +OZEMPIC0.25 MG/02 SQ; +Ropivacaine 0.5% HCL/PF 5 MG/ML 30ML Vial ONE; +TURMERIC500 M2 PO; +VITAMIN D5000 UNIT; +[UNRECOGNIZED DRUG - OTHER] PO
[2024-09-13] MEDS ORDERED: Lactated Ringer's 1,000 ML IV ONE ×2 (12:20→13:12)
[2024-09-13] MEDS ORDERED: CeFAZolin Sodium 2,000 MG VIAL ONE (12:20)
[2024-09-13] MEDS ORDERED: propofoL 60 ML IV ONE (12:34)
[2024-09-13] MEDS ORDERED: Metoclopramide HCl 5MG / ML 2ML Vial ONE (12:37)
[2024-09-13] MEDS ORDERED: Dexamethasone Sod Phos 10 MG/ML 1ML VIAL ONE (12:37)
[2024-09-13] MEDS ORDERED: Ondansetron HCl 2 MG / ML 2ML Vial ONE (12:37)
[2024-09-13] MEDS ORDERED: Midazolam HCl 1MG / ML 2ML Vial ONE (12:38)
[2024-09-13] MEDS ORDERED: FentaNYL Citrate 50 MCG/ML 2 ML Injection ONE (12:38)
[2024-09-13] MEDS ORDERED: BUPROPION XL150 M1 (12:51)
[2024-09-13] MEDS ORDERED: FLUCONAZOLE (12:52)
[2024-09-13] MEDS ORDERED: OZEMPIC2 MG/0.75 SC (12:58)
[2024-09-13] MEDS ORDERED: FREESTYLE LIBR1 EAC7 MC (12:59)
[2024-09-13] MEDS ORDERED: NS 0 ML IV ONE (13:55)
--- NOTE | 2024-09-13 14:11 | NUR ---
09/13/24 1411 Zuleima Cage 30ML OF ROPIVACAINE 0.5% MIXED WITH 0.15MG OF EPI (1MG/ML) TO MAKE ROPIVACAINE 0.5% WITH EPI 1:200,000 FOR INJECTION AT THE OPSITE.
[2024-09-13] MEDS ORDERED: EPINEPhrine HCl 1 MG/ML 1ML Amp XX ONE ×2 (14:18)
[2024-09-13 14:44] VITALS: BP 97/73
--- NOTE | 2024-09-13 15:24 | NUR ---
09/13/24 1524 Amberly Espinosa PT DENIED ANY PAIN, NO NAUSEA. PT TOLERATED FLUIDS JUST FINE. PT'S ASHLYN, AT BEDSIDE. PT'S VSS, WNL. PT EDUCATION PROVIDED TO PT AND HIS . ALL QUESTIONS WERE ANSWERED/CONCERNS ADDRESSED. PT PROVIDED WITH AN ICE PACK TO TAKE HOME.
== END 2024-09-13 15:22 | disposition home or self-care (01) ==
LOC: ORSCSDS 11:28
PROVIDERS: Podiatrist Foot & Ankle Surgery
PROC: 0Y6R0Z0 Detachment at Right 2nd Toe, Complete, Open Approach (ICD-10-PCS; principal; 2024-09-13 13:45)
PROC: 0Y6T0Z0 Detachment at Right 3rd Toe, Complete, Open Approach (ICD-10-PCS; principal; 2024-09-13 13:45)
PROC: 0Y6V0Z0 Detachment at Right 4th Toe, Complete, Open Approach (ICD-10-PCS; principal; 2024-09-13 13:45)
DX: E11.621 Type 2 diabetes mellitus with foot ulcer (principal); M86.171 Other acute osteomyelitis, right ankle and foot; L03.031 Cellulitis of right toe; I10 Essential (primary) hypertension; I48.91 Unspecified atrial fibrillation; Z79.01 Long term (current) use of anticoagulants; E78.5 Hyperlipidemia, unspecified; E11.40 Type 2 diabetes mellitus with diabetic neuropathy, unspecified; F41.9 Anxiety disorder, unspecified; F32.A Depression, unspecified; Z79.899 Other long term (current) drug therapy; E66.9 Obesity, unspecified; Z68.32 Body mass index [BMI] 32.0-32.9, adult
CPT/HCPCS: 82947; 88305; 88311; 93005; 93010; J0171; J0690; J1100; J2250; J2405; J2704; J2765; J2795; J3010; J7120

== ENCOUNTER 2024-11-23 16:12 | Emergency (ER) | payer OTHER ==
[~2024-11-23] VITALS: Ht 172.7 cm; Wt 85.7 kg
[~2024-11-23 16:12] MED LIST changes: +BUPROPION XL150 M1; +FLUCONAZOLE; +FREESTYLE LIBR1 EAC7 MC; +OZEMPIC2 MG/0.75 SC; -Ropivacaine 0.5% HCL/PF 5 MG/ML 30ML Vial ONE
[2024-11-23 16:52] LABS: BASOPHILS ABSOLUTE AUTO 0.05 K/mm3 (0.00-0.23); BASOPHILS PERCENT AUTO 1 % (0-2); EOSINOPHILS ABSOLUTE AUTO 0.31 K/mm3 (0.00-0.68); EOSINOPHILS PERCENT AUTO 4 % (0-6); Hematocrit 41.5 % (37.0-53.0); IMMATURE GRAN PERCENT AUTO 1 % (0-1); LYMPHOCYTES ABSOLUTE AUTO 3.26 K/mm3 (0.84-5.20); LYMPHOCYTES PERCENT AUTO 38 % (21-46); MONOCYTES ABSOLUTE AUTO 0.47 K/mm3 (0.16-1.47); MONOCYTES PERCENT AUTO 6 % (4-13); Mean Corpuscular HGB 29.7 pg (26.0-34.0); Mean Corpuscular HGB Conc 33.7 g/dL (31.5-36.5); Mean Corpuscular Volume 88 fL (80-100); Mean Platelet Volume 7.8 fL (9.1-12.4); NEUTROPHILS ABSOLUTE AUTO 4.41 K/mm3 (1.96-9.15); NEUTROPHILS PERCENT AUTO 51 % (41-73); Platelet Count 219 K/mm3 (150-400); RDW Coefficient Variation 12.4 % (11.7-14.2); RDW Standard Deviation 40.2 fL (35.1-46.3); Red Blood Cell Count 4.71 M/mm3 (4.30-5.90)
[2024-11-23 17:02] LABS: Prothrombin Time Results 10.7 Sec (9.7-11.5)
[2024-11-23 17:16] LABS: Ethanol (Alcohol), Blood, Med <3 mg/dL
[2024-11-23 17:17] LABS: Alanine Aminotransfer (ALT/SGP 20 U/L (12-78); Albumin, Blood 3.3 g/dL (3.4-5.0); Albumin/Globulin Ratio 0.7 (0.8-1.8); Alk Phos 98 U/L (50-136); Anion Gap 9 mmol/L (3-11); Aspartate Aminotrans (AST/SGOT 15 U/L (12-37); Bilirubin, Total 0.9 mg/dL (0.1-1.0); Blood Urea Nitrogen 19 mg/dL (8-24); Bun/Creatinine Ratio 16.5 (12.0-20.0); CO2, Blood 28 mmol/L (21-32); Calcium, Blood 9.2 mg/dL (8.5-10.1); Chloride, Blood 102 mmol/L (98-108); Creatinine, Blood 1.15 mg/dL (0.60-1.20); Globulin, Blood 4.5 g/dL (2.2-4.0); Glomerular Filtration Rate 72 (60-); Glucose, Blood 205 mg/dL (70-99); Potassium, Blood 5.2 mmol/L (3.5-5.5); Sodium, Blood 134 mmol/L (136-145); Total Protein, Blood 7.8 g/dL (6.4-8.2)
[2024-11-23] MEDS ORDERED: Morphine Sulfate 4 MG/1 ML Injection IV ONE (17:45)
[2024-11-23] MEDS ORDERED: ACET500 PO (18:33)
[2024-11-23] MEDS ORDERED: OxyCODONE 10/Acetamin 325 TABLET PO ONE (18:35)
[2024-11-23 19:30] VITALS: BP 109/87
== END 2024-11-23 20:25 | disposition home or self-care (01) ==
LOC: ER 16:12
PROVIDERS: Emergency Medicine
DX: S80.811A Abrasion, right lower leg, initial encounter (principal); S50.811A Abrasion of right forearm, initial encounter; S51.811A Laceration without foreign body of right forearm, initial encounter; S61.210A Laceration without foreign body of right index finger without damage to nail, initial encounter; E11.9 Type 2 diabetes mellitus without complications; Z88.2 Allergy status to sulfonamides; Z79.899 Other long term (current) drug therapy; V03.90XA Pedestrian on foot injured in collision with car, pick-up truck or van, unspecified whether traffic or nontraffic accident, initial encounter
CPT/HCPCS: 12002; 70450; 71260; 72125; 73070; 73090; 74177; 80053; 80320; 83690; 85025; 85610; 96374-59; 99285-25; A9270; J2270; Q9967

== ENCOUNTER 2025-09-28 00:10 | Day surgery (SDC) | payer OTHER ==
[~2025-09-28 00:10] MED LIST changes: +ACET500 PO
== END 2025-09-28 23:00 | disposition home or self-care (01) ==
LOC: WOUND 00:10
DX: L02.31 Cutaneous abscess of buttock (principal); E78.5 Hyperlipidemia, unspecified; E11.9 Type 2 diabetes mellitus without complications; I10 Essential (primary) hypertension; Z88.2 Allergy status to sulfonamides
CPT/HCPCS: G0463

== ENCOUNTER 2025-10-19 00:14 | Day surgery (SDC) | payer OTHER | END 2025-10-19 23:19 | disposition home or self-care (01) | LOC: WOUND 00:14 | DX: S31.819D Unspecified open wound of right buttock, subsequent encounter (principal); E11.622 Type 2 diabetes mellitus with other skin ulcer; L02.31 Cutaneous abscess of buttock; E11.40 Type 2 diabetes mellitus with diabetic neuropathy, unspecified; I10 Essential (primary) hypertension; M19.90 Unspecified osteoarthritis, unspecified site; X58.XXXD Exposure to other specified factors, subsequent encounter; Z79.85 Long-term (current) use of injectable non-insulin antidiabetic drugs; Z79.899 Other long term (current) drug therapy | CPT/HCPCS: G0463 ==